=== PATIENT | female | born 1930 | race African-American/Black ===

== ENCOUNTER 2017-08-28 02:45 | Inpatient (IN) | payer MEDICARE, MEDICAID ==
[~2017-08-28] VITALS: Ht 170.2 cm; Wt 34.9 kg
[2017-08-28 02:45] VITALS: BP 99/56
[2017-08-28] MEDS ORDERED: LACTULOSE20 GM/301 GT (03:13)
[2017-08-28] MEDS ORDERED: BACTROBAN CR1 APPLIC TOPIC (03:13)
[2017-08-28] MEDS ORDERED: MULTIVITAMINS1 EAC8 GT (03:13)
[2017-08-28] MEDS ORDERED: MIRTAZAPINE7.5 MG GT (03:13)
[2017-08-28] MEDS ORDERED: FAMOTIDINE20 MG GT (03:13)
[2017-08-28] MEDS ORDERED: TRAMADOL HCL50 MG GT (03:13)
[2017-08-28] MEDS ORDERED: COMBIVENT RESPIM4 GM IH (03:13)
[2017-08-28] MEDS ORDERED: VIBRAMYCIN100 MG ORAL (03:13)
[2017-08-28] MEDS ORDERED: FERROUS SULFAT325 MG GT (03:13)
[2017-08-28] MEDS ORDERED: HEPARIN SO5000 UNIT2 SUBQ (03:13)
[2017-08-28] MEDS ORDERED: NAMENDA5 MG GT (03:13)
[2017-08-28] MEDS ORDERED: ACETAMINOPHEN325 M1 GT (03:13)
--- NOTE | 2017-08-28 03:13 | Emergency Room Report ---
History of Present Illness General Chief Complaint: Gastrointestinal Bleed Source: Medical Record, EMS Present Illness HPI This is an 86-year-old female with history of dementia and feeding tube. She resided in a long-term. She presents with chief complaint of rectal bleeding. Onset tonight. Couple of episodes bright red blood. Also was hypotensive initially per EMS. No nausea vomiting. No fever or chills. History is limited because of patient's dementia. Allergies: Coded Allergies: PENICILLINS (Verified Allergy, Unknown, 08/28/17) Patient History Past Medical History: see triage record, old chart reviewed Past Surgical History: other Pertinent Family History: none Social History: Denies: smoking Now: No Immunizations: other Reviewed Nursing Documentation: PMH: Agreed; PSxH: Agreed Nursing Documentation-PMH Past Medical History: No History, Except For Hx Hypertension: Yes - Severe Sepsis Hx Gastrointestinal Problems: Yes - GERD, Dyshpagia, UTI History Of Psychiatric Problem: Yes - Major Depressive Disorder, Dementia Review of Systems Eye: Denies: eye pain, blurred vision ENT: Denies: ear pain, nose congestion, throat swelling Respiratory: Denies: cough, shortness of breath Cardiovascular: Denies: chest pain, palpitations Gastrointestinal: Denies: abdominal pain, diarrhea, nausea, vomiting Musculoskeletal: Denies: back pain, joint pain Skin: Denies: rash Neurological: Denies: headache, numbness Endocrine: Denies: increased thirst, increased urine Hematologic/Lymphatic: Denies: easy bruising All Other Systems: negative except mentioned in HPI Physical Exam Vital Signs Date Time Temp Pulse Resp B/P (MAP) Pulse Ox O2 Delivery O2 Flow Rate FiO2 08/28/17 02:40 97.6 103 18 99/56 97 Room Air 97.5 vitals with borderline high blood and tachycardia Sp02 EP Interpretation: reviewed, normal General Appearance: alert, cachetic, Chronically Ill Head: normocephalic, atraumatic Eyes: bilateral eye PERRL, bilateral eye EOMI ENT: hearing grossly normal, dry mucus membranes Neck: full range of motion, supple, no meningismus Respiratory: chest non-tender, lungs clear, normal breath sounds Cardiovascular #1: regular rate, rhythm, no murmur Gastrointestinal: normal bowel sounds, non tender, no mass, no organomegaly, no bruit, non-distended Rectal: other - large bright red stool with clots Musculoskeletal: back normal, normal range of motion Neurologic: grossly normal Psychiatric: mood/affect normal Skin: warm/dry Procedures Critical Care Time Critical Care Time Critical care is mandated in this patient who presented with sepsis secondary to UTI. Patient require my urgent intervention to attenuate the risks of metabolic collapse which may lead to cardiovascular collapse and . Critical care time is 35 minutes excluding any reportable procedure. Critical care time included evaluation, multiple reevaluation, looking at old charts, interpreting laboratory and diagnostic data, discussing case with patient and family and consultants, and charting. Medical Decision Making Diagnostic Impression: Primary Impression: Sepsis Qualified Codes: A41.9 - Sepsis, unspecified organism Additional Impressions: UTI (urinary tract infection) Qualified Codes: N30.00 - Acute cystitis without hematuria GI bleed Qualified Codes: K62.5 - Hemorrhage of anus and rectum Anemia Qualified Codes: D64.9 - Anemia, unspecified ARF (acute renal failure) Qualified Codes: N17.9 - Acute kidney failure, unspecified Proteinuria Qualified Codes: R80.9 - Proteinuria, unspecified ER Course Patient present with rectal bleeding. She also has sepsis secondary to UTI. Urine was very purulent. Antibiotics started. Will admit for further workup. Blood pressure improved with IV fluid. Sepsis reevaluation Time: 5 AM Vitals: Heart rate 93, blood pressure 111/48, respiration 16, oxygenation 98%, temperature 97 degree Mental status: More awake and responsive Cardiovascular: Regular rate and rhythm Lungs: Clear Abdomen: Soft Extremity: No edema Skin: No mottling Lab Results Impression labs with leukocytosis and acute renal failure EKG Diagnostic Results Rate: tachycardiac Rhythm: NSR ST Segments: no acute changes Rhythm Strip Diag. Results Rhythm Strip Time: 03:13 EP Interpretation: yes Rate: 98 Rhythm: NSR, no PVC's, no ectopy Chest X-Ray Diagnostic Results Chest X-Ray Diagnostic Results : Chest X-Ray Ordered: Yes # of Views/Limited/Complete: 1 View Indication: Chest Pain EP Interpretation: Yes Interpretation: no consolidation, no effusion, no pneumothorax, no acute cardiopulmonary disease Impression: No acute disease Electronically Signed by: Bruce Crocker MD Last Vital Signs Date Time Temp Pulse Resp B/P (MAP) Pulse Ox O2 Delivery O2 Flow Rate FiO2 08/28/18 02:40 97.6 103 18 99/56 97 Room Air 97.5 Status: improved Disposition: ADMITTED INPATIENT Condition: Serious Referrals: CARL GARCIA (PCP) BRUCE CROCKER M.D. Aug 28, 2017 03:13
[2017-08-28] MEDS ORDERED: Haloperidol 5mg/ml Inj IM ONE (03:15)
[2017-08-28 03:21] LABS: HEMATOCRIT 30.2 % (37.0-47.0); MEAN CORPUSCULAR VOLUME 90 FL (80-99); PLATELET COUNT 642 K/UL (150-450); RED BLOOD COUNT 3.34 M/UL (4.20-5.40); RED CELL DISTRIBUTION WIDTH 15.4 % (11.6-14.8)
[2017-08-28 03:24] LABS: INR 1.1 (0.9-1.1); WHITE BLOOD COUNT 28.4 K/UL (4.8-10.8)
[2017-08-28] MEDS ORDERED: HUMULIN R100 UNIT/1 SUBQ (03:27)
[2017-08-28 03:36] LABS: APPEARANCE,URINE VERY CLOUDY; BILIRUBIN, URINE NEGATIVE (NEGATIVE); GLUCOSE, URINE (UA) NEGATIVE (NEGATIVE); KETONES,URINE NEGATIVE (NEGATIVE); LEUKOCYTE ESTERASE ,URINE 3+ (NEGATIVE); NITRITE,URINE NEGATIVE (NEGATIVE); PH,URINE 6 (4.5-8.0); PROTEIN,URINE 3+ (NEGATIVE); UROBILINOGEN,URINE NORMAL MG/DL (0.0-1.0)
[2017-08-28 03:38] LABS: COLOR,URINE YELLOW
[2017-08-28 03:39] LABS: ANION GAP 11 mmol/L (5-15); BLOOD UREA NITROGEN 241 mg/dL (7-18); CARBON DIOXIDE 29 MMOL/L (21-32); CHLORIDE 94 MMOL/L (98-107); CREATININE 4.5 MG/DL (0.55-1.30); POTASSIUM 4.9 MMOL/L (3.5-5.1); SODIUM 133 MMOL/L (136-145)
[2017-08-28 03:40] LABS: ALANINE AMINOTRANSFERASE 26 U/L (12-78); ALBUMIN 1.6 G/DL (3.4-5.0); ALBUMIN/GLOBULIN RATIO 0.2 (1.0-2.7); ALKALINE PHOSPHATASE 180 U/L (46-116); ASPARTATE AMINO TRANSFERASE 16 U/L (15-37); BILIRUBIN,TOTAL 0.3 MG/DL (0.2-1.0)
[2017-08-28] MEDS ORDERED: Cefepime HCl 1 GM in D5W 55 ML IVPB ONE (04:30)
[2017-08-28] MEDS ORDERED: Vancomycin 750mg/NS 250ml 250 ML IVPB ONE (04:30)
[2017-08-28] MEDS ORDERED: Cefepime 1gm vial ONE (04:33)
[2017-08-28 04:45] VITALS: BP 125/44
[2017-08-28 08:00] VITALS: BP 108/76
[2017-08-28] MEDS ORDERED: D5 1/2NS 1,000 ML IV SCH ×2 (08:30→13:00)
[2017-08-28] MEDS ORDERED: Heparin 5000 units/ml inj SUBQ SCH (09:00)
--- NOTE | 2017-08-28 09:03 | Diagnostic Imaging Report ---
Indication: Shortness of breath Technique: XRAY Chest 1v Comparison: None Findings: Examination is markedly limited due to patient contraction and positioning. Cardiac silhouette appears prominent. Perihilar interstitial opacities are noted. There is left mid and bibasilar atelectasis or scarring. There is no gross pleural effusion. Degenerative changes of the spine are seen. There is osteopenia. Impression: Examination significantly limited by patient contraction and positioning. Perihilar interstitial prominence and mild edema or interstitial infiltrates not excluded. Clinical correlation/follow-up recommended. Left mid and bibasilar atelectasis/scarring.
[2017-08-28] MEDS: Memantine 5 MG TAB GT SCH ×2 (10:04→18:16)
[2017-08-28] MEDS: Lactulose 20gm/30ml UDC GT SCH ×2 (10:04→18:15)
[2017-08-28] MEDS: Multivitamin w/Minerals tab ORAL SCH (10:04)
[2017-08-28 10:48] LABS: HEMATOCRIT 27.8 % (37.0-47.0); HEMOGLOBIN 9.1 G/DL (12.0-16.0); MEAN CORPUSCULAR VOLUME 92 FL (80-99); PLATELET COUNT 618 K/UL (150-450); RED BLOOD COUNT 3.01 M/UL (4.20-5.40)
[2017-08-28 10:50] LABS: WHITE BLOOD COUNT 24.1 K/UL (4.8-10.8)
[2017-08-28 11:13] LABS: ALANINE AMINOTRANSFERASE 23 U/L (12-78); ALBUMIN 1.5 G/DL (3.4-5.0); ALBUMIN/GLOBULIN RATIO 0.2 (1.0-2.7); ALKALINE PHOSPHATASE 164 U/L (46-116); ANION GAP 10 mmol/L (5-15); ASPARTATE AMINO TRANSFERASE 19 U/L (15-37); BILIRUBIN,TOTAL 0.3 MG/DL (0.2-1.0); BLOOD UREA NITROGEN 210 mg/dL (7-18); CALCIUM 9.2 MG/DL (8.5-10.1); CARBON DIOXIDE 28 MMOL/L (21-32); CHLORIDE 103 MMOL/L (98-107); CREATININE 3.7 MG/DL (0.55-1.30); PHOSPHORUS 2.6 MG/DL (2.5-4.9); POTASSIUM 4.5 MMOL/L (3.5-5.1); SODIUM 140 MMOL/L (136-145)
[2017-08-28] MEDS: NovoLOG Insulin Flexpen SUBQ SCH ×3 (11:30→21:00)
[2017-08-28 12:00] VITALS: BP 115/47
--- NOTE | 2017-08-28 12:31 | History & Physical ---
History and Physical History & Physicial Dictated for Int Med-Dr Villegas no. [id number]. JOELLE FROST Aug 28, 2017 12:31
--- NOTE | 2017-08-28 12:45 | General Progress Note ---
Progress Note Progress Note [id number] full consult dictated thank you SIMONE JACOBO Aug 28, 2017 12:45
--- NOTE | 2017-08-28 13:15 | History and Physical Report ---
DATE OF ADMISSION: 08/28/2017 CHIEF COMPLAINT: The patient is an 86-year-old female who presents with chief complaint of rectal bleeding. HISTORY OF PRESENT ILLNESS: The patient is resident of [facility]. The patient herself is unable to contribute much to the history and physical secondary to Alzheimer dementia. According to staff at [facility], the patient began to experience rectal bleeding yesterday, August 27, 2017. The patient presented to [place] [facility]. The patient was admitted for acute rectal bleeding to rule out colon cancer versus diverticulosis. Of note, the patient was found to have urinary tract infection as well. The patient also was found to have leukocytosis. The patient was also admitted for probable sepsis. REVIEW OF SYSTEMS: Unable to assess secondary to the patient's mental status. PAST MEDICAL HISTORY: Significant for: 1. Chronic anemia. 2. Chronic renal failure. 3. Hypertension. 4. Major depression. 5. Alzheimer dementia. 6. Gastroesophageal reflux disease. 7. History of dysphagia, status post PEG placement. PAST SURGICAL HISTORY: Significant for PEG placement. CURRENT MEDICATIONS: 1. Tylenol 650 mg per G-tube q.4 hours p.r.n. 2. Pepcid 20 mg per G-tube daily. 3. Iron sulfate 325 mg per G-tube twice daily. 4. Heparin 5000 units subcutaneously twice daily. 5. Regular insulin sliding scale. 6. DuoNeb nebulized q.4 h. p.r.n. 7. Lactulose 30 mL per G-tube twice daily. 8. Namenda 5 mg per G-tube twice daily for dementia. 9. Mirtazapine 7.5 mg per G-tube nightly. 10. Tramadol 50 mg per G-tube q.4 hours p.r.n. ALLERGIES: To penicillin. SOCIAL HISTORY: The patient denies tobacco or alcohol use. The patient is resident of [facility]. PHYSICAL EXAMINATION: VITAL SIGNS: Temperature 97.5, respirations 18, pulse 96, blood pressure 99 to 125 over 44 to 56. GENERAL: The patient is thin-appearing, frail, elderly female, who is moaning. HEENT: Eyes, pupils equal and responsive to light and accommodation. Extraocular movements are intact. NECK: Supple without lymphadenopathy. CHEST: Lungs are clear to auscultation bilaterally without wheezes or rales. CARDIOVASCULAR: Regular rhythm and rate. S1, S2 normal without murmurs, rubs, or gallops. ABDOMEN: Soft, nontender, nondistended. Positive bowel sounds. No evidence of hepatosplenomegaly. Currently, no rebound or guarding noted. There is a percutaneous G-tube present. NEUROLOGICAL: Cranial nerves II through XII are grossly intact without focal deficits. LABORATORY STUDIES: WBC elevated at 28.4, hemoglobin 10.0, hematocrit 30.2, platelets 642,000. Sodium 133, potassium 4.9, chloride 94, CO2 29, BUN 241, creatinine 4.5, glucose 146. Troponin 0.0. Urinalysis showed 3+ protein, 5+ occult blood, 3+ leukocyte esterase, nitrite negative, leukocyte esterase 3+, wbc's too numerous to count. A chest x-ray revealed perihilar interstitial prominence consistent with infiltrate. ASSESSMENT: This is an 86-year-old female with: 1. Rectal bleeding. 2. Urinary tract infection. 3. Probable pneumonia. 4. Sepsis. 5. Anemia. 6. Acute on chronic renal failure. 7. Leukocytosis. 8. Hypertension. 9. Major depression. 10. Alzheimer dementia. 11. Gastroesophageal reflux disease. 12. Dysphagia. TREATMENT: 1. Rectal bleeding. Gastroenterology consultation has been obtained with Dr. Dontae Buenrostro. We will follow recommendations of Dr. Buenrostro. The patient has been placed empirically on Protonix. 2. Urinary tract infection. Urine culture is pending. The patient has been placed empirically on cefepime and vancomycin. 3. Probable pneumonia. Pulmonary consultation has been obtained with Dr. Scottie Jarquin. As above, the patient has been placed empirically on cefepime and vancomycin. 4. Sepsis. Await urine cultures as above. An Infectious Disease consultation has been obtained with Dr. Irwin. 5. Anemia of chronic disease. 6. Acute on chronic renal failure. Nephrology consultation has been obtained with Dr. Mcintyre. The patient is currently on intravenous fluids. 7. Leukocytosis. This is secondary to sepsis as above. 8. Hypertension. The patient is currently hypotensive. Hold antihypertensive medication at this time. 9. Major depression. Continue mirtazapine as above. 10. Alzheimer dementia. Continue Namenda as above. 11. Gastroesophageal reflux disease. Continue Protonix as above. 12. Dysphagia. The patient is status post PEG. Urban Lim M.D. DR: Seth JOB#: [id number] CC:
[2017-08-28] MEDS: D5 1/2NS 1,000 ML IV SCH ×2 (13:42→21:30)
--- NOTE | 2017-08-28 13:46 | General Progress Note ---
Assessment/Plan Assessment/Plan GI CONSULT Dictated Will arrange for EGD/Colon tomorrow Thank you Kadi Mckeon MD Subjective Allergies: Coded Allergies: PENICILLINS (Verified Allergy, Unknown, 08/28/17) Objective Last 24 Hour Vital Signs Date Time Temp Pulse Resp B/P (MAP) Pulse Ox O2 Delivery O2 Flow Rate FiO2 08/28/17 12:00 96.9 98 18 115/47 92 Room Air 96.9 08/28/17 10:49 96.9 08/28/17 08:00 91 08/28/17 08:00 96.9 94 19 108/76 94 Room Air 96.9 08/28/17 05:30 97.8 97 15 125/44 97 Room Air 97.8 08/28/17 04:45 97.8 97 15 125/44 97 Room Air 97.8 08/28/17 02:45 97.5 96 18 99/56 97 Room Air 97.5 08/28/17 02:40 97.6 103 18 99/56 97 Room Air 97.5 Intake and Output 08/27/17 08/28/17 19:00 07:00 Intake Total 1950 ml Output Total 500 ml Balance 1450 ml Intake IV Total 1950 ml Output Urine Total 500 ml Laboratory Tests 08/28/17 03:00: White Blood Count 28.4*H, Red Blood Count 3.34L, Hemoglobin 10.0L, Hematocrit 30.2L, Mean Corpuscular Volume 90, Mean Corpuscular Hemoglobin 29.8, Mean Corpuscular Hemoglobin Concent 33.0, Red Cell Distribution Width 15.4H, Platelet Count 642H, Mean Platelet Volume 5.7L, Neutrophils (%) (Auto) , Lymphocytes (%) (Auto) , Monocytes (%) (Auto) , Eosinophils (%) (Auto) , Basophils (%) (Auto) , Differential Total Cells Counted 100, Neutrophils % ( Manual) 88H, Lymphocytes % (Manual) 8L, Monocytes % (Manual) 4, Eosinophils % ( Manual) 0, Basophils % (Manual) 0, Band Neutrophils 0, Platelet Estimate IncreasedH, Platelet Morphology Normal, Hypochromasia 1+, Anisocytosis 1+, Prothrombin Time 11.0, Prothromb Time International Ratio 1.1, Activated Partial Thromboplast Time 30, Sodium Level 133L, Potassium Level 4.9, Chloride Level 94L, Carbon Dioxide Level 29, Anion Gap 11, Blood Urea Nitrogen 241H, Creatinine 4.5H, Estimat Glomerular Filtration Rate , Glucose Level 146H, Calcium Level 10.0, Total Bilirubin 0.3, Aspartate Amino Transf (AST/SGOT) 16, Alanine Aminotransferase (ALT/SGPT) 26, Alkaline Phosphatase 180H, Troponin I 0.000, Total Protein 8.4H, Albumin 1.6L, Globulin 6.8, Albumin/Globulin Ratio 0.2L 08/28/17 03:15: Urine Color Yellow, Urine Appearance Very cloudy, Urine pH 6, Urine Specific [place] 1.010, Urine Protein 3+H, Urine Glucose (UA) Negative, Urine Ketones Negative, Urine Occult Blood 5+H, Urine Nitrite Negative, Urine Bilirubin Negative, Urine Urobilinogen Normal, Urine Leukocyte Esterase 3+H, Urine RBC 15- 20H, Urine WBC TntcH, Urine Squamous Epithelial Cells ModerateH, Urine Bacteria ManyH, Lactic Acid Level 1.40 08/28/17 10:00: White Blood Count 24.1*H, Red Blood Count 3.01L, Hemoglobin 9.1L, Hematocrit 27.8L, Mean Corpuscular Volume 92, Mean Corpuscular Hemoglobin 30.2, Mean Corpuscular Hemoglobin Concent 32.7, Red Cell Distribution Width 16.0H, Platelet Count 618H, Mean Platelet Volume 5.7L, Neutrophils (%) (Auto) , Lymphocytes (%) (Auto) , Monocytes (%) (Auto) , Eosinophils (%) (Auto) , Basophils (%) (Auto) , Differential Total Cells Counted 100, Neutrophils % ( Manual) 90H, Lymphocytes % (Manual) 4L, Monocytes % (Manual) 5, Eosinophils % ( Manual) 0, Basophils % (Manual) 0, Band Neutrophils 1, Platelet Estimate IncreasedH, Platelet Morphology Normal, Hypochromasia 1+, Anisocytosis 1+, Sodium Level 140, Potassium Level 4.5, Chloride Level 103, Carbon Dioxide Level 28, Anion Gap 10, Blood Urea Nitrogen 210H, Creatinine 3.7H, Estimat Glomerular Filtration Rate , Glucose Level 108H, Calcium Level 9.2, Total Bilirubin 0.3, Aspartate Amino Transf (AST/SGOT) 19, Alanine Aminotransferase (ALT/SGPT) 23, Alkaline Phosphatase 164H, Total Protein 7.8, Albumin 1.5L, Globulin 6.3, Albumin/Globulin Ratio 0.2L, Phosphorus Level 2.6, Magnesium Level 2.7H Height (Feet): 5 Height (Inches): 7.00 Weight (Pounds): 77 KADI MCKEON Aug 28, 2017 13:46
--- NOTE | 2017-08-28 14:15 | Consultation ---
DATE OF CONSULTATION: 08/28/2017 NEPHROLOGY CONSULTATION CONSULTING PHYSICIAN: Lisbeth Mcintyre M.D. REFERRING PHYSICIAN: Urban Lim M.D. REASON FOR CONSULTATION: Acute renal failure. HISTORY OF PRESENT ILLNESS: The patient is an unfortunate 86-year-old female with past medical history significant for history of GERD, history of G-tube placement, hypertension, dyslipidemia, and history of malnutrition, who was transferred from long term to [facility] due to couple of episodes of bright red blood per rectum. The patient baseline is nonverbal, but she currently moaning and she is not able to provide meaningful history for me, so most of my history are obtained through reviewing the chart and information from the long term. PAST MEDICAL HISTORY: 1. History of GERD. 2. History of hypertension. 3. History of dyslipidemia. 4. History of dementia. PAST SURGICAL HISTORY: History of PEG placement. MEDICATION: Medication reconciliation was reviewed. ALLERGIES: She is allergic to penicillin. REVIEW OF SYSTEMS: Unable to obtain due to the patient's condition and mental status, but based on the information obtained from the long term and from the nurse currently, the patient had multiple episodes of bright red blood per rectum. She has also some tenderness where the G-tube feeding has been hold. There was no nausea or vomiting was reported. There was no fever or chills. There is no shortness of breath. The patient currently has a Asencio catheter, which is draining very dark white sediment urine in the Asencio bag. Otherwise, negative. PHYSICAL EXAMINATION: VITAL SIGNS: The patient had temperature of 97, pulse of 103, respiratory rate of 18, and blood pressure of 99/53. GENERAL: The patient is a chronically ill, malnourished female, in no acute distress. HEAD AND NECK: Bitemporal wasting. Extraocular movement intact. Pupils are reactive to light and accommodation. Sclera is pink. Dry mucous membranes. LUNGS: Clear to auscultation. CARDIAC: Regular rate and rhythm. S1 and S2. No murmur. No rub. ABDOMEN: Soft, nontender. G-tube is in place. EXTREMITIES: No edema, no clubbing, no cyanosis. LABORATORY AND DIAGNOSTIC DATA: Laboratory value, the patient on admission found to have sodium 133, potassium 4.9, chloride 94, bicarbonate 29, BUN of 241, creatinine of 4.5, glucose of 146, and calcium of 10. AST of 16, ALT of 26, and alkaline phosphatase of 180. Total protein of 8.4. Albumin of 1.6. UA revealed specific gravity of 1.010, protein 3+, pH of 6, blood 5+, leukocyte esterase 2+, rbc 15 to 20, wbc too many to count, bacteria many. INR 1.1. CBC revealed WBC count of , hemoglobin of 10, hematocrit of 30, and platelet count of 642. ASSESSMENT: 1. Acute renal failure. The etiology of acute renal failure ATN with unstable hemodynamics. ATN at this point is nonoliguric. The patient has good urine output. The other possibility of elevation of the BUN as a result of GI bleeding, which causing elevation in BUN. 2. Malnutrition with albumin of 1.5, which needs to have a better evaluation with checking the prealbumin level. 3. Urinary tract infection. 4. GI bleeding. 5. Hypotension. 6. Dementia. PLAN: Plan for the patient to obtain UA. Check the random urine protein creatinine ratio to calculate the proteinuria. Check the urine sodium and creatinine to calculate fractional excretion of sodium. Ultrasound of the kidney to evaluate the kidney size. Check the I's and O's. Monitor renal function and electrolytes closely. Again, I would like to thank, Dr. Lim, for allowing me to participate in the care of this patient. Lisbeth Mcintyre M.D. DR: KRYSTLE JOB#: [id number] CC:
[2017-08-28] MEDS ORDERED: Nulytely 4L ORAL ONE (14:30)
[2017-08-28 16:00] VITALS: BP 117/63
[2017-08-28 20:00] VITALS: BP 144/67
[2017-08-28] MEDS: metroNIDAZOLE 500mg tab ORAL SCH (21:59)
[2017-08-28] MEDS: traMADol 50mg tab GT PRN (22:02)
--- NOTE | 2017-08-28 23:39 | Consultation ---
History of Present Illness General Date patient seen: Aug 27, 2017 Chief Complaint: Gastrointestinal Bleed Present Illness Allergies: Coded Allergies: PENICILLINS (Verified Allergy, Unknown, 08/28/17) Medication History Scheduled Doxycycline Hyclate* (Vibramycin*), 100 MG ORAL EVERY 12 HOURS, (Reported) Famotidine (Famotidine), 20 MG GT DAILY, (Reported) Ferrous Sulfate* (Ferrous Sulfate*), 325 MG GT BID, (Reported) Heparin Sod (Porcine) (Heparin Sodium*), 5,000 UNITS SUBQ EVERY 12 HOURS, ( Reported) Ipratropium/Albuterol Sulfate (Combivent Respimat Inhal [place]), 3 GM IH QID, ( Reported) Lactulose (Lactulose*), 30 ML GT BID, (Reported) Memantine Hcl* (Namenda*), 5 MG GT TWICE A DAY, (Reported) Mirtazapine* (Mirtazapine*), 7.5 MG GT BEDTIME, (Reported) Multivitamin With Minerals (Multivitamins With Minerals*), 1 TAB GT DAILY, ( Reported) Mupirocin Calcium (Bactroban), 1 APPLIC TOPIC DAILY, (Reported) Scheduled PRN Acetaminophen* (Acetaminophen 325MG Tablet*), 650 MG GT Q4H PRN for For Pain, ( Reported) Insulin Regular, Human (Humulin R), 0 SUBQ ACHS PRN for Sliding Scale, (Reported ) Tramadol Hcl* (Ultram*), 50 MG GT Q4HR PRN for For Pain, (Reported) Patient History Healthcare decision maker Resuscitation status Full Code Advanced Directive on File Physical Exam Last 24 Hour Vital Signs Date Time Temp Pulse Resp B/P (MAP) Pulse Ox O2 Delivery O2 Flow Rate FiO2 08/28/17 20:00 91 08/28/17 20:00 97.7 89 22 144/67 Room Air 97.7 08/28/17 16:00 97.0 87 19 117/63 Room Air 97.0 08/28/17 16:00 85 08/28/17 12:00 98 08/28/17 12:00 96.9 98 18 115/47 92 Room Air 96.9 08/28/17 10:49 96.9 08/28/17 08:00 91 08/28/17 08:00 96.9 94 19 108/76 94 Room Air 96.9 08/28/17 05:30 97.8 97 15 125/44 97 Room Air 97.8 08/28/17 04:45 97.8 97 15 125/44 97 Room Air 97.8 08/28/17 02:45 97.5 96 18 99/56 97 Room Air 97.5 08/28/17 02:40 97.6 103 18 99/56 97 Room Air 97.5 Intake and Output 08/27/17 08/28/17 19:00 07:00 Intake Total 1950 ml Output Total 500 ml Balance 1450 ml Intake IV Total 1950 ml Output Urine Total 500 ml Laboratory Tests Test 08/28/17 03:00 08/28/17 03:15 08/28/17 10:00 08/28/17 16:15 White Blood Count 28.4 K/UL (4.8-10.8) *H 24.1 K/UL (4.8-10.8) *H Red Blood Count 3.34 M/UL (4.20-5.40) L 3.01 M/UL (4.20-5.40) L Hemoglobin 10.0 G/DL (12.0-16.0) L 9.1 G/DL (12.0-16.0) L Hematocrit 30.2 % (37.0-47.0) L 27.8 % (37.0-47.0) L Mean Corpuscular Volume 90 FL (80-99) 92 FL (80-99) Mean Corpuscular Hemoglobin 29.8 PG (27.0-31.0) 30.2 PG (27.0-31.0) Mean Corpuscular Hemoglobin Concent 33.0 G/DL (32.0-36.0) 32.7 G/DL (32.0-36.0) Red Cell Distribution Width 15.4 % (11.6-14.8) H 16.0 % (11.6-14.8) H Platelet Count 642 K/UL (150-450) H 618 K/UL (150-450) H Mean Platelet Volume 5.7 FL (6.5-10.1) L 5.7 FL (6.5-10.1) L Neutrophils (%) (Auto) % (45.0-75.0) % (45.0-75.0) Lymphocytes (%) (Auto) % (20.0-45.0) % (20.0-45.0) Monocytes (%) (Auto) % (1.0-10.0) % (1.0-10.0) Eosinophils (%) (Auto) % (0.0-3.0) % (0.0-3.0) Basophils (%) (Auto) % (0.0-2.0) % (0.0-2.0) Differential Total Cells Counted 100 100 Neutrophils % (Manual) 88 % (45-75) H 90 % (45-75) H Lymphocytes % (Manual) 8 % (20-45) L 4 % (20-45) L Monocytes % (Manual) 4 % (1-10) 5 % (1-10) Eosinophils % (Manual) 0 % (0-3) 0 % (0-3) Basophils % (Manual) 0 % (0-2) 0 % (0-2) Band Neutrophils 0 % (0-8) 1 % (0-8) Platelet Estimate Increased H Increased H Platelet Morphology Normal Normal Hypochromasia 1+ 1+ Anisocytosis 1+ 1+ Prothrombin Time 11.0 SEC (9.30-11.50) Prothromb Time International Ratio 1.1 (0.9-1.1) Activated Partial Thromboplast Time 30 SEC (23-33) Sodium Level 133 MMOL/L (136-145) L 140 MMOL/L (136-145) Potassium Level 4.9 MMOL/L (3.5-5.1) 4.5 MMOL/L (3.5-5.1) Chloride Level 94 MMOL/L (98-107) L 103 MMOL/L (98-107) Carbon Dioxide Level 29 MMOL/L (21-32) 28 MMOL/L (21-32) Anion Gap 11 mmol/L (5-15) 10 mmol/L (5-15) Blood Urea Nitrogen 241 mg/dL (7-18) H 210 mg/dL (7-18) H Creatinine 4.5 MG/DL (0.55-1.30) H 3.7 MG/DL (0.55-1.30) H Estimat Glomerular Filtration Rate mL/min (>60) mL/min (>60) Glucose Level 146 MG/DL (74-106) H 108 MG/DL (74-106) H Calcium Level 10.0 MG/DL (8.5-10.1) 9.2 MG/DL (8.5-10.1) Total Bilirubin 0.3 MG/DL (0.2-1.0) 0.3 MG/DL (0.2-1.0) Aspartate Amino Transf (AST/SGOT) 16 U/L (15-37) 19 U/L (15-37) Alanine Aminotransferase (ALT/SGPT) 26 U/L (12-78) 23 U/L (12-78) Alkaline Phosphatase 180 U/L (46-116) H 164 U/L (46-116) H Troponin I 0.000 ng/mL (0.000-0.056) Total Protein 8.4 G/DL (6.4-8.2) H 7.8 G/DL (6.4-8.2) Albumin 1.6 G/DL (3.4-5.0) L 1.5 G/DL (3.4-5.0) L Globulin 6.8 g/dL 6.3 g/dL Albumin/Globulin Ratio 0.2 (1.0-2.7) L 0.2 (1.0-2.7) L Urine Color Yellow Urine Appearance Very cloudy Urine pH 6 (4.5-8.0) Urine Specific [place] 1.010 (1.005-1.035) Urine Protein 3+ (NEGATIVE) H Urine Glucose (UA) Negative (NEGATIVE) Urine Ketones Negative (NEGATIVE) Urine Occult Blood 5+ (NEGATIVE) H Urine Nitrite Negative (NEGATIVE) Urine Bilirubin Negative (NEGATIVE) Urine Urobilinogen Normal MG/DL (0.0-1.0) Urine Leukocyte Esterase 3+ (NEGATIVE) H Urine RBC 15-20 /HPF (0 - 2) H Urine WBC Tntc /HPF (0 - 2) H Urine Squamous Epithelial Cells Moderate /LPF (NONE/OCC) H Urine Bacteria Many /HPF (NONE) H Lactic Acid Level 1.40 mmol/L (0.66-2.22) Phosphorus Level 2.6 MG/DL (2.5-4.9) Magnesium Level 2.7 MG/DL (1.8-2.4) H Urine Eosinophils Rare Urine Random Creatinine Pending Urine Random Microalbumin Pending Urine Random Total Protein 77 MG/DL (< 11.9) H Urine Random Sodium 36 mmol/L (20-110) Urine Creatinine 25.7 MG/DL (30.0-125.0) L Urine Microalbumin/Creatinine Ratio Pending Height (Feet): 5 Height (Inches): 7.00 Weight (Pounds): 77 Medications Current Medications Medications (Trade) Dose Ordered Sig/Zeke Route PRN Reason Start Time Stop Time Status Last Admin Dose Admin Acetaminophen (Tylenol) 650 mg Q4H PRN ORAL Mild Pain (Pain Scale 1-3) 08/28/17 08:00 09/27/17 07:59 08/28/17 10:49 Cefepime HCl 500 mg/Dextrose 55 ml @ 110 mls/hr Q24H IVPB 08/29/17 09:00 09/05/17 08:59 Dextrose (Dextrose 50%) STAT PRN IV Hypoglycemia 08/28/17 08:30 09/27/17 08:29 Dextrose/Sodium Chloride 1,000 ml @ 125 mls/hr Q8H IV 08/28/17 13:30 09/27/17 13:29 08/28/17 13:42 Famotidine (Pepcid) 20 mg DAILY GT 08/28/17 09:00 09/27/17 08:59 08/28/17 10:04 Insulin Aspart (NovoLOG) BEFORE MEALS AND HS SUBQ 08/28/17 11:30 09/27/17 11:29 Lactulose (Cephulac) 20 gm BID GT 08/28/17 09:00 09/27/17 08:59 08/28/17 18:15 Memantine (Namenda) 5 mg TWICE A DAY GT 08/28/17 09:00 09/27/17 08:59 08/28/17 18:16 Metronidazole (Flagyl) 500 mg Q8HR ORAL 08/28/17 22:00 09/04/17 21:59 08/28/17 21:59 Mirtazapine (Remeron) 7.5 mg BEDTIME GT 08/28/17 21:00 09/27/17 20:59 08/28/17 21:58 Multivitamins Therapeutic (Therapeutic Multivitamin) 1 ea DAILY ORAL 08/28/17 09:00 09/27/17 08:59 08/28/17 10:04 Tramadol HCl (Ultram) 50 mg Q4H PRN GT Moderate Pain (Pain Scale 4-6) 08/28/17 08:00 09/04/17 07:59 08/28/17 22:02 Vancomycin HCl (Vanco rx to dose) 1 ea DAILY PRN MISC Per rx protocol 08/28/17 08:00 09/27/17 07:59 Poppy Mercado M.D. Aug 28, 2017 23:39
[2017-08-29] VITALS (9 sets, daily range): BP systolic 116–134; BP diastolic 56–76
--- NOTE | 2017-08-29 00:45 | Consultation ---
DATE OF CONSULTATION: 08/28/2017 GASTROENTEROLOGY CONSULTATION CONSULTING PHYSICIAN: Kadi Mckeon M.D. CHIEF COMPLAINT: I was asked this patient by Dr. Urban Lim and Dr. Karl Villegas for evaluation of gastrointestinal bleeding. HISTORY OF PRESENT ILLNESS: The patient is an unfortunate 86-year-old woman with dementia, from a halfway, who was brought in due to acute gastrointestinal bleeding. The patient was noted to have rectal bleeding and therefore, she was brought in. It is unclear of the source. The patient has not had a colonoscopy or endoscopy for least 5 to 10 years according to the daughter. The patient herself was confused and unable to provide any history. Most of the information is only available from the chart. The patient underwent a gastrostomy tube placement about 6 months ago because of poor nutrition. She has renal failure herself, which appeared to be chronic. PAST MEDICAL HISTORY: History of chronic anemia with acute gastrointestinal bleeding, renal failure, hypertension, depression, Alzheimer's dementia, gastroesophageal reflux disease, history of dysphagia status post gastrostomy tube placement. MEDICATIONS: Outpatient medications include Tylenol, Pepcid, iron, heparin, nebulizers, lactulose, Namenda, mirtazapine, and tramadol. ALLERGIES: Penicillin. FAMILY HISTORY: Noncontributory. SOCIAL HISTORY: The patient has had no history of smoking or drinking. She is from a halfway. REVIEW OF SYSTEMS: Unobtainable. PHYSICAL EXAMINATION: GENERAL: Debilitated, thin, woman, seen in her room with the nurse at bedside. HEENT: Normocephalic. There was temporal wasting. NECK: Supple. CHEST: Revealed coarse breath sounds. CARDIOVASCULAR: Revealed a regular rate. ABDOMEN: Soft with gastrostomy tube in good position. EXTREMITIES: Revealed no edema. RECTAL: From external view showed dark red stools. LABORATORY AND DIAGNOSTIC DATA: Laboratory data were noted. ASSESSMENT: This patient presents with acute gastrointestinal bleeding. Given her age and presentation, the differential diagnosis would include diverticular bleeding. Another consideration, especially given the elevated white count would be ischemic bowel or ischemic colitis with bleeding. Her platelet count was also elevated, which usually is seen in inflammatory processes. Her creatinine is 3.7, but it sounds like it is maybe old. Her lactic acid today is normal, but will be followed up tomorrow. Her overall prognosis is poor, but the family requests an investigation re source. Her urine also shows urine tract infection, for which she clearly needs antibiotic treatment. RECOMMENDATIONS: 1. Keep the patient NPO. 2. GI tract preparation and lavage. 3. Broad-spectrum antibiotics. 4. Aggressive hydration and followup. 5. Endoscopy and colonoscopy in the the next day or two once stabilized. Thank you for asking me to participate in the care of this patient. Kadi Mckeon M.D. DR: JENNY JOB#: [id number] CC: [id number]
[2017-08-29] MEDS: D5 1/2NS 1,000 ML IV SCH ×2 (03:47→15:47)
[2017-08-29] MEDS: metroNIDAZOLE 500mg tab ORAL SCH ×3 (05:43→22:45)
[2017-08-29] MEDS: NovoLOG Insulin Flexpen SUBQ SCH ×4 (06:26→21:00)
--- NOTE | 2017-08-29 08:26 | Anethesia Preoperative Eval ---
Anesthesia Pre-op PMH/ROS General Date of Evaluation: Aug 29, 2017 Time of Evaluation: 08:23 Anesthesiologist: amena ASA Score: ASA 4 Mallampati Score Class I : Soft palate, uvula, fauces, pillars visible Class II: Soft palate, uvula, fauces visible Class III: Soft palate, base of uvula visible Class IV: Only hard plate visible Mallampati Classification: Class II Surgeon: jessica Diagnosis: anemia, rectal bleed Surgical Procedure: egd/colonoscopy Anesthesia History: none Social History: smoking - nonsmoker Family History: no anesthesia problems Allergies: Coded Allergies: PENICILLINS (Verified Allergy, Unknown, 08/28/17) Medications: see eMAR Past Medical History Gastrointestinal/Genitourinary: Reports: GERD, ESRD Neurologic/Psychiatric: Reports: dementia, other - muscular dystrophy Endocrine: Reports: DM Hematology/Immune: Reports: anemia Anesthesia Pre-op Phys. Exam Physician Exam Last Vital Signs Date Time Temp Pulse Resp B/P (MAP) Pulse Ox O2 Delivery O2 Flow Rate FiO2 08/29/17 04:00 97.3 102 24 116/57 Room Air 98.4 97.3 08/28/17 12:00 92 Constitutional: NAD Neurologic: CN 2-12 intact Cardiovascular: RRR Respiratory: CTA Gastrointestinal: S/NT/ND Airway Exam Mallampati Score: Class II MO: limited Neck: supple TMD: 2fb ROM: limited Teeth: missing Anesthesia Pre-op A/P Labs Hematology Test 08/28/17 10:00 White Blood Count 24.1 K/UL (4.8-10.8) *H Red Blood Count 3.01 M/UL (4.20-5.40) L Hemoglobin 9.1 G/DL (12.0-16.0) L Hematocrit 27.8 % (37.0-47.0) L Mean Corpuscular Volume 92 FL (80-99) Mean Corpuscular Hemoglobin 30.2 PG (27.0-31.0) Mean Corpuscular Hemoglobin Concent 32.7 G/DL (32.0-36.0) Red Cell Distribution Width 16.0 % (11.6-14.8) H Platelet Count 618 K/UL (150-450) H Mean Platelet Volume 5.7 FL (6.5-10.1) L Neutrophils (%) (Auto) % (45.0-75.0) Lymphocytes (%) (Auto) % (20.0-45.0) Monocytes (%) (Auto) % (1.0-10.0) Eosinophils (%) (Auto) % (0.0-3.0) Basophils (%) (Auto) % (0.0-2.0) Differential Total Cells Counted 100 Neutrophils % (Manual) 90 % (45-75) H Lymphocytes % (Manual) 4 % (20-45) L Monocytes % (Manual) 5 % (1-10) Eosinophils % (Manual) 0 % (0-3) Basophils % (Manual) 0 % (0-2) Band Neutrophils 1 % (0-8) Platelet Estimate Increased H Platelet Morphology Normal Hypochromasia 1+ Anisocytosis 1+ Chemistry Test 08/28/17 10:00 Sodium Level 140 MMOL/L (136-145) Potassium Level 4.5 MMOL/L (3.5-5.1) Chloride Level 103 MMOL/L (98-107) Carbon Dioxide Level 28 MMOL/L (21-32) Anion Gap 10 mmol/L (5-15) Blood Urea Nitrogen 210 mg/dL (7-18) H Creatinine 3.7 MG/DL (0.55-1.30) H Estimat Glomerular Filtration Rate mL/min (>60) Glucose Level 108 MG/DL (74-106) H Calcium Level 9.2 MG/DL (8.5-10.1) Phosphorus Level 2.6 MG/DL (2.5-4.9) Magnesium Level 2.7 MG/DL (1.8-2.4) H Total Bilirubin 0.3 MG/DL (0.2-1.0) Aspartate Amino Transf (AST/SGOT) 19 U/L (15-37) Alanine Aminotransferase (ALT/SGPT) 23 U/L (12-78) Alkaline Phosphatase 164 U/L (46-116) H Total Protein 7.8 G/DL (6.4-8.2) Albumin 1.5 G/DL (3.4-5.0) L Globulin 6.3 g/dL Albumin/Globulin Ratio 0.2 (1.0-2.7) L Risk Assessment & Plan Assessment: asa4 Plan: mac Status Change Before Surgery: No Pre-Antibiotics Drug: ELYSIA Laboy 26, 2018 08:26
[2017-08-29] MEDS ORDERED: Midazolam 2mg/2ml Inj IVP PRN (08:30)
[2017-08-29] MEDS ORDERED: fentaNYL 100 mcg/2 mL IV PRN (08:30)
[2017-08-29] MEDS ORDERED: Atropine Inj 1mg/10ml Syr IV PRN (08:30)
[2017-08-29] MEDS ORDERED: DiphenhydrAMINE 50mg/ml Inj IVP PRN (08:30)
[2017-08-29 09:14] LABS: HEMATOCRIT 36.6 % (37.0-47.0); HEMOGLOBIN 12.2 G/DL (12.0-16.0); MEAN CORPUSCULAR VOLUME 91 FL (80-99); PLATELET COUNT 561 K/UL (150-450); RED BLOOD COUNT 4.03 M/UL (4.20-5.40); RED CELL DISTRIBUTION WIDTH 14.9 % (11.6-14.8)
--- NOTE | 2017-08-29 09:20 | Nephrology Progress Note ---
Assessment/Plan Assessment 1. Acute renal failure. 2. Malnutrition 3. Urinary tract infection. 4. GI bleeding. 5. Hypotension. 6. Dementia. Plan plan continue ivf monitoring renal function avoid NSAID replace electrolyte as need Subjective Constitutional: Reports: no symptoms HEENT: Reports: no symptoms Genitourinary: Reports: no symptoms Neurologic/Psychiatric: Reports: no symptoms Subjective no acute events over night Objective Objective Last 24 Hour Vital Signs Date Time Temp Pulse Resp B/P (MAP) Pulse Ox O2 Delivery O2 Flow Rate FiO2 08/29/17 04:00 97.3 102 24 116/57 Room Air 98.4 97.3 08/29/17 04:00 98 08/29/17 00:00 96 08/29/17 00:00 97.2 99 24 117/72 Room Air 98.0 97.2 08/28/17 20:00 91 08/28/17 20:00 97.7 89 22 144/67 Room Air 97.7 08/28/17 16:00 97.0 87 19 117/63 Room Air 97.0 08/28/17 16:00 85 08/28/17 12:00 98 08/28/17 12:00 96.9 98 18 115/47 92 Room Air 96.9 08/28/17 10:49 96.9 Intake and Output 08/28/17 08/29/17 19:00 07:00 Intake Total 655 ml 895 ml Output Total 1825 ml Balance 655 ml -930 ml Intake IV Total 655 ml 395 ml Blood Product 500 ml Output Urine Total 1825 ml # Bowel Movements 3 4 Laboratory Tests 08/28/17 10:00: White Blood Count 24.1*H, Red Blood Count 3.01L, Hemoglobin 9.1L, Hematocrit 27.8L, Mean Corpuscular Volume 92, Mean Corpuscular Hemoglobin 30.2, Mean Corpuscular Hemoglobin Concent 32.7, Red Cell Distribution Width 16.0H, Platelet Count 618H, Mean Platelet Volume 5.7L, Neutrophils (%) (Auto) , Lymphocytes (%) (Auto) , Monocytes (%) (Auto) , Eosinophils (%) (Auto) , Basophils (%) (Auto) , Differential Total Cells Counted 100, Neutrophils % ( Manual) 90H, Lymphocytes % (Manual) 4L, Monocytes % (Manual) 5, Eosinophils % ( Manual) 0, Basophils % (Manual) 0, Band Neutrophils 1, Platelet Estimate IncreasedH, Platelet Morphology Normal, Hypochromasia 1+, Anisocytosis 1+, Sodium Level 140, Potassium Level 4.5, Chloride Level 103, Carbon Dioxide Level 28, Anion Gap 10, Blood Urea Nitrogen 210H, Creatinine 3.7H, Estimat Glomerular Filtration Rate , Glucose Level 108H, Calcium Level 9.2, Phosphorus Level 2.6, Magnesium Level 2.7H, Total Bilirubin 0.3, Aspartate Amino Transf (AST/SGOT) 19 , Alanine Aminotransferase (ALT/SGPT) 23, Alkaline Phosphatase 164H, Total Protein 7.8, Albumin 1.5L, Globulin 6.3, Albumin/Globulin Ratio 0.2L 08/28/17 16:15: Urine Eosinophils Rare, Urine Random Creatinine [Pending], Urine Random Microalbumin [Pending], Urine Random Total Protein 77H, Urine Random Sodium 36, Urine Creatinine 25.7L, Urine Microalbumin/Creatinine Ratio [Pending] 08/29/17 08:55: White Blood Count [Pending], Red Blood Count [Pending], Hemoglobin [Pending], Hematocrit [Pending], Mean Corpuscular Volume [Pending], Mean Corpuscular Hemoglobin [Pending], Mean Corpuscular Hemoglobin Concent [Pending], Red Cell Distribution Width [Pending], Platelet Count [Pending], Mean Platelet Volume [ Pending], Neutrophils (%) (Auto) [Pending], Lymphocytes (%) (Auto) [Pending], Monocytes (%) (Auto) [Pending], Eosinophils (%) (Auto) [Pending], Basophils (%) (Auto) [Pending], Sodium Level [Pending], Potassium Level [Pending], Chloride Level [Pending], Carbon Dioxide Level [Pending], Blood Urea Nitrogen [Pending], Creatinine [Pending], Estimat Glomerular Filtration Rate [Pending], Glucose Level [Pending], Calcium Level [Pending], Lactic Acid Level [Pending], Gamma Glutamyl Transpeptidase [Pending], Random Vancomycin Level [Pending] Height (Feet): 5 Height (Inches): 7.00 Weight (Pounds): 77 Objective GENERAL: The patient is a chronically ill, malnourished female, in no acute distress. HEAD AND NECK: Bitemporal wasting. Extraocular movement intact. Pupils are reactive to light and accommodation. Sclera is pink. Dry mucous membranes. LUNGS: Clear to auscultation. CARDIAC: Regular rate and rhythm. S1 and S2. No murmur. No rub. ABDOMEN: Soft, nontender. G-tube is in place. EXTREMITIES: No edema, no clubbing, no cyanosis. SIMONE JACOBO Aug 29, 2017 09:20
[2017-08-29 09:39] LABS: ANION GAP 11 mmol/L (5-15); BLOOD UREA NITROGEN 132 mg/dL (7-18); CARBON DIOXIDE 26 MMOL/L (21-32); CHLORIDE 112 MMOL/L (98-107); CREATININE 2.2 MG/DL (0.55-1.30); POTASSIUM 3.7 MMOL/L (3.5-5.1); SODIUM 148 MMOL/L (136-145)
[2017-08-29] MEDS: Lactulose 20gm/30ml UDC GT SCH ×2 (09:53→18:34)
[2017-08-29] MEDS: Multivitamin w/Minerals tab ORAL SCH (09:54)
[2017-08-29] MEDS: Memantine 5 MG TAB GT SCH ×2 (09:54→18:34)
[2017-08-29] MEDS: Cefepime HCl 500 MG in D5W 55 ML IVPB SCH (09:57)
--- NOTE | 2017-08-29 10:36 | General Progress Note ---
Assessment/Plan Assessment/Plan Assessment - GI Bleed - Cachexia - OBS - Dysphagia - Hypernatremia - Azotemia Recommendations - EGD/Colon today - Increase free water - Follow Na and Cr - IV hydration - serial CBC - Transfuse PRN Subjective Allergies: Coded Allergies: PENICILLINS (Verified Allergy, Unknown, 08/28/17) Subjective non interactive (++) BM with prep - now light green NPO for EGD/Colon today Objective Last 24 Hour Vital Signs Date Time Temp Pulse Resp B/P (MAP) Pulse Ox O2 Delivery O2 Flow Rate FiO2 08/29/17 09:00 94 08/29/17 08:00 96.3 96 19 120/62 Room Air 96.3 08/29/17 04:00 97.3 102 24 116/57 Room Air 98.4 97.3 08/29/17 04:00 98 08/29/17 00:00 96 08/29/17 00:00 97.2 99 24 117/72 Room Air 98.0 97.2 08/28/17 20:00 91 08/28/17 20:00 97.7 89 22 144/67 Room Air 97.7 08/28/17 16:00 97.0 87 19 117/63 Room Air 97.0 08/28/17 16:00 85 08/28/17 12:00 98 08/28/17 12:00 96.9 98 18 115/47 92 Room Air 96.9 08/28/17 10:49 96.9 Intake and Output 08/28/17 08/29/17 19:00 07:00 Intake Total 655 ml 895 ml Output Total 1825 ml Balance 655 ml -930 ml Intake IV Total 655 ml 395 ml Blood Product 500 ml Output Urine Total 1825 ml # Bowel Movements 3 4 Laboratory Tests 08/28/17 16:15: Urine Eosinophils Rare, Urine Random Creatinine [Pending], Urine Random Microalbumin [Pending], Urine Random Total Protein 77H, Urine Random Sodium 36, Urine Creatinine 25.7L, Urine Microalbumin/Creatinine Ratio [Pending] 08/29/17 08:55: White Blood Count 18.0H, Red Blood Count 4.03L, Hemoglobin 12.2#, Hematocrit 36.6#L, Mean Corpuscular Volume 91, Mean Corpuscular Hemoglobin 30.2, Mean Corpuscular Hemoglobin Concent 33.3, Red Cell Distribution Width 14.9H, Platelet Count 561H, Mean Platelet Volume 5.5L, Neutrophils (%) (Auto) , Lymphocytes (%) (Auto) , Monocytes (%) (Auto) , Eosinophils (%) (Auto) , Basophils (%) (Auto) , Neutrophils % (Manual) [Pending], Lymphocytes % (Manual) [Pending], Platelet Estimate [Pending], Platelet Morphology [Pending], Sodium Level 148H, Potassium Level 3.7, Chloride Level 112H, Carbon Dioxide Level 26, Anion Gap 11, Blood Urea Nitrogen 132#H, Creatinine 2.2H, Estimat Glomerular Filtration Rate , Glucose Level 161H, Lactic Acid Level 1.60, Calcium Level 9.0 , Gamma Glutamyl Transpeptidase 20, Random Vancomycin Level [Pending] Height (Feet): 5 Height (Inches): 7.00 Weight (Pounds): 77 Objective Cachexic AA woman NCAT Supple CTA RRR Abd Soft ND NT, (+) GT ext no edema Neuro OBS VERO MATHIS Aug 29, 2017 10:36
--- NOTE | 2017-08-29 10:51 | Pre-Procedure Note/Attestation ---
Pre-Procedure Note/Attestation Complete Prior to Procedure Planned Procedure: not applicable Procedure Narrative: egd/colon Indications for Procedure Pre-Operative Diagnosis: GIB Attestation I attest that I discussed the nature of the procedure; its benefits; risks and complications; and alternatives (and the risks and benefits of such alternatives ), prior to the procedure, with the patient (or the patient's legal shared services representative). I attest that, if there was a reasonable possibility of needing a blood transfusion, the patient (or the patient's legal shared services representative) was given the [facility] standardized written summary, pursuant to the [place] Blood Safety Act ([place] Health and Safety Code # 1645, as amended). I attest that I re-evaluated the patient just prior to the surgery and that there has been no change in the patient's H&P, except as documented below: VERO MATHIS Aug 29, 2017 10:51
--- NOTE | 2017-08-29 11:08 | Internal Med Progress Note ---
Subjective Date of Service: Aug 29, 2017 Physician Name CarinaJoelle Attending Physician Karl Villegas MD Current Medications Medications (Trade) Dose Ordered Sig/Zeke Route PRN Reason Start Time Stop Time Status Last Admin Dose Admin Acetaminophen (Tylenol) 650 mg Q4H PRN ORAL Mild Pain (Pain Scale 1-3) 08/28/17 08:00 09/27/17 07:59 08/28/17 10:49 Al Hydroxide/Mg Hydroxide (Mylanta) 15 ml Q1H PRN ORAL gi upset 08/29/17 08:30 08/29/17 15:00 Atropine Sulfate (Atropine) 0.5 mg Q5M PRN IV bpm less than 45 08/29/17 08:30 08/29/17 15:00 Cefepime HCl 500 mg/Dextrose 55 ml @ 110 mls/hr Q24H IVPB 08/29/17 09:00 09/05/17 08:59 08/29/17 09:57 Dextrose (Dextrose 50%) STAT PRN IV Hypoglycemia 08/28/17 08:30 09/27/17 08:29 Dextrose/Sodium Chloride 1,000 ml @ 125 mls/hr Q8H IV 08/28/17 13:30 09/27/17 13:29 08/29/17 03:47 Diphenhydramine HCl (Benadryl) 25 mg Q15M PRN IVP Itching 08/29/17 08:30 08/29/17 15:00 Famotidine (Pepcid) 20 mg DAILY GT 08/28/17 09:00 09/27/17 08:59 08/29/17 09:54 Fentanyl Citrate (Sublimaze 100 mcg/2 mL) 25 mcg Q10M PRN IV Moderate Pain (Pain Scale 4-6) 08/29/17 08:30 08/29/17 15:00 Hydralazine HCl (Apresoline) 5 mg Q30M PRN IV SBP>160 OR___/DBP>90 OR___ 08/29/17 08:30 08/29/17 15:00 Insulin Aspart (NovoLOG) BEFORE MEALS AND HS SUBQ 08/28/17 11:30 09/27/17 11:29 Lactulose (Cephulac) 20 gm BID GT 08/28/17 09:00 09/27/17 08:59 08/29/17 09:53 Memantine (Namenda) 5 mg TWICE A DAY GT 08/28/17 09:00 09/27/17 08:59 08/29/17 09:54 Metronidazole (Flagyl) 500 mg Q8HR ORAL 08/28/17 22:00 09/04/17 21:59 08/29/17 05:43 Midazolam HCl (Versed 2mg/2ml vial) 1 mg Q15M PRN IVP For Anxiety 08/29/17 08:30 08/29/17 15:00 Mirtazapine (Remeron) 7.5 mg BEDTIME GT 08/28/17 21:00 09/27/17 20:59 08/28/17 21:58 Multivitamins Therapeutic (Therapeutic Multivitamin) 1 ea DAILY ORAL 08/28/17 09:00 09/27/17 08:59 08/29/17 09:54 Ondansetron HCl (Zofran) 4 mg Q1H PRN IVP Nausea & Vomiting 08/29/17 08:30 08/29/17 15:00 Tramadol HCl (Ultram) 50 mg Q4H PRN GT Moderate Pain (Pain Scale 4-6) 08/28/17 08:00 09/04/17 07:59 08/28/17 22:02 Vancomycin HCl (Vanco rx to dose) 1 ea DAILY PRN MISC Per rx protocol 08/28/17 08:00 09/27/17 07:59 Allergies: Coded Allergies: PENICILLINS (Verified Allergy, Unknown, 08/28/17) ROS Limited/Unobtainable: No Constitutional: Reports: no symptoms HEENT: Reports: no symptoms Cardiovascular: Reports: no symptoms Respiratory: Reports: no symptoms Gastrointestinal/Abdominal: Reports: rectal bleeding Genitourinary: Reports: no symptoms Neurologic/Psychiatric: Reports: no symptoms Subjective 86 YO F admitted with rectal bleeding. Await endoscopy/colonoscopy today. Cover for Int Cristian-Dr Villegas Objective Last Vital Signs Date Time Temp Pulse Resp B/P (MAP) Pulse Ox O2 Delivery O2 Flow Rate FiO2 08/29/17 09:00 94 08/29/17 08:00 96.3 19 120/62 Room Air 96.3 08/29/17 04:00 98.4 08/28/17 12:00 92 Laboratory Tests Test 08/28/17 16:15 08/29/17 08:55 Urine Eosinophils Rare Urine Random Creatinine Pending Urine Random Microalbumin Pending Urine Random Total Protein 77 MG/DL (< 11.9) H Urine Random Sodium 36 mmol/L (20-110) Urine Creatinine 25.7 MG/DL (30.0-125.0) L Urine Microalbumin/Creatinine Ratio Pending White Blood Count 18.0 K/UL (4.8-10.8) H Red Blood Count 4.03 M/UL (4.20-5.40) L Hemoglobin 12.2 G/DL (12.0-16.0) # Hematocrit 36.6 % (37.0-47.0) #L Mean Corpuscular Volume 91 FL (80-99) Mean Corpuscular Hemoglobin 30.2 PG (27.0-31.0) Mean Corpuscular Hemoglobin Concent 33.3 G/DL (32.0-36.0) Red Cell Distribution Width 14.9 % (11.6-14.8) H Platelet Count 561 K/UL (150-450) H Mean Platelet Volume 5.5 FL (6.5-10.1) L Neutrophils (%) (Auto) % (45.0-75.0) Lymphocytes (%) (Auto) % (20.0-45.0) Monocytes (%) (Auto) % (1.0-10.0) Eosinophils (%) (Auto) % (0.0-3.0) Basophils (%) (Auto) % (0.0-2.0) Differential Total Cells Counted 100 Neutrophils % (Manual) 87 % (45-75) H Lymphocytes % (Manual) 7 % (20-45) L Monocytes % (Manual) 6 % (1-10) Eosinophils % (Manual) 0 % (0-3) Basophils % (Manual) 0 % (0-2) Band Neutrophils 0 % (0-8) Platelet Estimate Increased H Platelet Morphology Normal Anisocytosis 1+ Sodium Level 148 MMOL/L (136-145) H Potassium Level 3.7 MMOL/L (3.5-5.1) Chloride Level 112 MMOL/L (98-107) H Carbon Dioxide Level 26 MMOL/L (21-32) Anion Gap 11 mmol/L (5-15) Blood Urea Nitrogen 132 mg/dL (7-18) #H Creatinine 2.2 MG/DL (0.55-1.30) H Estimat Glomerular Filtration Rate mL/min (>60) Glucose Level 161 MG/DL (74-106) H Lactic Acid Level 1.60 mmol/L (0.66-2.22) Calcium Level 9.0 MG/DL (8.5-10.1) Gamma Glutamyl Transpeptidase 20 U/L (5-85) Random Vancomycin Level 5.4 ug/mL Microbiology Date/Time Source Procedure Growth Status 08/28/17 03:00 Blood Blood Culture - Preliminary NO GROWTH AFTER 24 HOURS Resulted 08/28/17 02:45 Blood Blood Culture - Preliminary NO GROWTH AFTER 24 HOURS Resulted 08/28/17 04:00 Nasal Nares MRSA Culture - Final Staphylococcus Aureus - Mrsa Complete 08/28/17 03:14 Urine,Clean Catch Urine Culture - Preliminary Gram Negative Bacillus 1 Resulted Intake and Output 08/28/17 08/29/17 19:00 07:00 Intake Total 655 ml 895 ml Output Total 1825 ml Balance 655 ml -930 ml Intake IV Total 655 ml 395 ml Blood Product 500 ml Output Urine Total 1825 ml # Bowel Movements 3 4 JOELLE FROST Aug 29, 2017 11:08
--- NOTE | 2017-08-29 11:16 | Internal Med Progress Note ---
Subjective Date of Service: Aug 29, 2017 Physician Name CarinaJoelle Attending Physician Karl Villegas MD Current Medications Medications (Trade) Dose Ordered Sig/Zeke Route PRN Reason Start Time Stop Time Status Last Admin Dose Admin Acetaminophen (Tylenol) 650 mg Q4H PRN ORAL Mild Pain (Pain Scale 1-3) 08/28/17 08:00 09/27/17 07:59 08/28/17 10:49 Al Hydroxide/Mg Hydroxide (Mylanta) 15 ml Q1H PRN ORAL gi upset 08/29/17 08:30 08/29/17 15:00 Atropine Sulfate (Atropine) 0.5 mg Q5M PRN IV bpm less than 45 08/29/17 08:30 08/29/17 15:00 Cefepime HCl 500 mg/Dextrose 55 ml @ 110 mls/hr Q24H IVPB 08/29/17 09:00 09/05/17 08:59 08/29/17 09:57 Dextrose (Dextrose 50%) STAT PRN IV Hypoglycemia 08/28/17 08:30 09/27/17 08:29 Dextrose/Sodium Chloride 1,000 ml @ 125 mls/hr Q8H IV 08/28/17 13:30 09/27/17 13:29 08/29/17 03:47 Diphenhydramine HCl (Benadryl) 25 mg Q15M PRN IVP Itching 08/29/17 08:30 08/29/17 15:00 Famotidine (Pepcid) 20 mg DAILY GT 08/28/17 09:00 09/27/17 08:59 08/29/17 09:54 Fentanyl Citrate (Sublimaze 100 mcg/2 mL) 25 mcg Q10M PRN IV Moderate Pain (Pain Scale 4-6) 08/29/17 08:30 08/29/17 15:00 Hydralazine HCl (Apresoline) 5 mg Q30M PRN IV SBP>160 OR___/DBP>90 OR___ 08/29/17 08:30 08/29/17 15:00 Insulin Aspart (NovoLOG) BEFORE MEALS AND HS SUBQ 08/28/17 11:30 09/27/17 11:29 Lactulose (Cephulac) 20 gm BID GT 08/28/17 09:00 09/27/17 08:59 08/29/17 09:53 Memantine (Namenda) 5 mg TWICE A DAY GT 08/28/17 09:00 09/27/17 08:59 08/29/17 09:54 Metronidazole (Flagyl) 500 mg Q8HR ORAL 08/28/17 22:00 09/04/17 21:59 08/29/17 05:43 Midazolam HCl (Versed 2mg/2ml vial) 1 mg Q15M PRN IVP For Anxiety 08/29/17 08:30 08/29/17 15:00 Mirtazapine (Remeron) 7.5 mg BEDTIME GT 08/28/17 21:00 09/27/17 20:59 08/28/17 21:58 Multivitamins Therapeutic (Therapeutic Multivitamin) 1 ea DAILY ORAL 08/28/17 09:00 09/27/17 08:59 08/29/17 09:54 Ondansetron HCl (Zofran) 4 mg Q1H PRN IVP Nausea & Vomiting 08/29/17 08:30 08/29/17 15:00 Tramadol HCl (Ultram) 50 mg Q4H PRN GT Moderate Pain (Pain Scale 4-6) 08/28/17 08:00 09/04/17 07:59 08/28/17 22:02 Vancomycin HCl (Vanco rx to dose) 1 ea DAILY PRN MISC Per rx protocol 08/28/17 08:00 09/27/17 07:59 Allergies: Coded Allergies: PENICILLINS (Verified Allergy, Unknown, 08/28/17) ROS Limited/Unobtainable: No Constitutional: Reports: no symptoms HEENT: Reports: no symptoms Cardiovascular: Reports: no symptoms Respiratory: Reports: no symptoms Gastrointestinal/Abdominal: Reports: rectal bleeding Genitourinary: Reports: no symptoms Neurologic/Psychiatric: Reports: no symptoms Subjective 86 YO F admitted with rectal bleeding. Await endoscopy/colonoscopy today. Cover for Patric Foster-Dr Villegas Objective Last Vital Signs Date Time Temp Pulse Resp B/P (MAP) Pulse Ox O2 Delivery O2 Flow Rate FiO2 08/29/17 09:00 94 08/29/17 08:00 96.3 19 120/62 Room Air 96.3 08/29/17 04:00 98.4 08/28/17 12:00 92 General Appearance: WD/WN, no apparent distress, alert EENT: PERRL/EOMI, normal ENT inspection Neck: non-tender, normal alignment, supple Cardiovascular: normal peripheral pulses, normal rate, regular rhythm, no gallop/murmur, no JVD Respiratory/Chest: chest wall non-tender, lungs clear, normal breath sounds, no respiratory distress, no accessory muscle use Abdomen: soft, no organomegaly, no mass, decreased bowel sounds, tender Extremities: normal range of motion, non-tender 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, no motor/sensory deficits Skin: normal pigmentation, warm/dry Laboratory Tests Test 08/28/17 16:15 08/29/17 08:55 Urine Eosinophils Rare Urine Random Creatinine Pending Urine Random Microalbumin Pending Urine Random Total Protein 77 MG/DL (< 11.9) H Urine Random Sodium 36 mmol/L (20-110) Urine Creatinine 25.7 MG/DL (30.0-125.0) L Urine Microalbumin/Creatinine Ratio Pending White Blood Count 18.0 K/UL (4.8-10.8) H Red Blood Count 4.03 M/UL (4.20-5.40) L Hemoglobin 12.2 G/DL (12.0-16.0) # Hematocrit 36.6 % (37.0-47.0) #L Mean Corpuscular Volume 91 FL (80-99) Mean Corpuscular Hemoglobin 30.2 PG (27.0-31.0) Mean Corpuscular Hemoglobin Concent 33.3 G/DL (32.0-36.0) Red Cell Distribution Width 14.9 % (11.6-14.8) H Platelet Count 561 K/UL (150-450) H Mean Platelet Volume 5.5 FL (6.5-10.1) L Neutrophils (%) (Auto) % (45.0-75.0) Lymphocytes (%) (Auto) % (20.0-45.0) Monocytes (%) (Auto) % (1.0-10.0) Eosinophils (%) (Auto) % (0.0-3.0) Basophils (%) (Auto) % (0.0-2.0) Differential Total Cells Counted 100 Neutrophils % (Manual) 87 % (45-75) H Lymphocytes % (Manual) 7 % (20-45) L Monocytes % (Manual) 6 % (1-10) Eosinophils % (Manual) 0 % (0-3) Basophils % (Manual) 0 % (0-2) Band Neutrophils 0 % (0-8) Platelet Estimate Increased H Platelet Morphology Normal Anisocytosis 1+ Sodium Level 148 MMOL/L (136-145) H Potassium Level 3.7 MMOL/L (3.5-5.1) Chloride Level 112 MMOL/L (98-107) H Carbon Dioxide Level 26 MMOL/L (21-32) Anion Gap 11 mmol/L (5-15) Blood Urea Nitrogen 132 mg/dL (7-18) #H Creatinine 2.2 MG/DL (0.55-1.30) H Estimat Glomerular Filtration Rate mL/min (>60) Glucose Level 161 MG/DL (74-106) H Lactic Acid Level 1.60 mmol/L (0.66-2.22) Calcium Level 9.0 MG/DL (8.5-10.1) Gamma Glutamyl Transpeptidase 20 U/L (5-85) Random Vancomycin Level 5.4 ug/mL Microbiology Date/Time Source Procedure Growth Status 08/28/17 03:00 Blood Blood Culture - Preliminary NO GROWTH AFTER 24 HOURS Resulted 08/28/17 02:45 Blood Blood Culture - Preliminary NO GROWTH AFTER 24 HOURS Resulted 08/28/17 04:00 Nasal Nares MRSA Culture - Final Staphylococcus Aureus - Mrsa Complete 08/28/17 03:14 Urine,Clean Catch Urine Culture - Preliminary Gram Negative Bacillus 1 Resulted Intake and Output 08/28/17 08/29/17 19:00 07:00 Intake Total 655 ml 895 ml Output Total 1825 ml Balance 655 ml -930 ml Intake IV Total 655 ml 395 ml Blood Product 500 ml Output Urine Total 1825 ml # Bowel Movements 3 4 Assessment/Plan Problem List: (1) Alzheimer's dementia Assessment & Plan: Continue namenda (2) GERD (gastroesophageal reflux disease) Assessment & Plan: Continue pepcid (3) Dysphagia (4) HTN (hypertension) Assessment & Plan: Continue hydralazine (5) Major depression (6) Renal failure (7) Rectal bleed Assessment & Plan: Await endoscopy and colonoscopy today-see GI note (8) UTI (urinary tract infection) Assessment & Plan: Gram neg real-await ID and sensitivity. Await ID consult. Continue cefepime and vanco (9) Sepsis (10) Anemia Status: not improved JOELLE FROST Aug 29, 2017 11:16
[2017-08-29] MEDS ORDERED: Propofol 200mg/20ml IV ONE (11:30)
[2017-08-29] MEDS ORDERED: Lidocaine 1% MPF 10mg/ml 5ml ONE (11:30)
[2017-08-29] MEDS ORDERED: NS 500ML IV ONE ×2 (12:00→12:47)
--- NOTE | 2017-08-29 13:21 | Immediate Post-Op Evaluation ---
Immediate Post-Op Evalulation Immediate Post-Op Evalulation Procedure: egd/colonoscopy w/bx Date of Evaluation: Aug 29, 2017 Time of Evaluation: 13:15 IV Fluids: 500ml 0.9ns Blood Products: none Estimated Blood Loss: negligible Blood Pressure Systolic: 134 Blood Pressure Diastolic: 64 Pulse Rate: 79 Respiratory Rate: 18 O2 Sat by Pulse Oximetry: 99 Temperature (Fahrenheit): 98.1 Pain Score (1-10): 0 Nausea: No Vomiting: No Complications none Patient Status: awake, reacts, patent Hydration Status: adequate Drug: ELYSIA Laboy Aug 29, 2017 13:21
--- NOTE | 2017-08-29 13:22 | Consultation ---
History of Present Illness General Date patient seen: Aug 29, 2017 Time patient seen: 13:03 Chief Complaint: Gastrointestinal Bleed Present Illness HPI 86 y/o F with hx of GERD, malnutrition/dysphagia s/p GT placement ~6 months ago , CKD, MDD, Dementia, non verbal, HTN , jail resident, [facility] is brought to ED on 08/28 with BRBPR. Foudn to be hypotensive by EMS which improved with IVFs. No fever. Leukocytosis up to 28, now down to 18. U/a with pyuria. No nausea, vomiting, f/c For EGD and colonoscopy today. Allergies: Coded Allergies: PENICILLINS (Verified Allergy, Unknown, 08/28/17) Medication History Scheduled Doxycycline Hyclate* (Vibramycin*), 100 MG ORAL EVERY 12 HOURS, (Reported) Famotidine (Famotidine), 20 MG GT DAILY, (Reported) Ferrous Sulfate* (Ferrous Sulfate*), 325 MG GT BID, (Reported) Heparin Sod (Porcine) (Heparin Sodium*), 5,000 UNITS SUBQ EVERY 12 HOURS, ( Reported) Ipratropium/Albuterol Sulfate (Combivent Respimat Inhal Strum), 3 GM IH QID, ( Reported) Lactulose (Lactulose*), 30 ML GT BID, (Reported) Memantine Hcl* (Namenda*), 5 MG GT TWICE A DAY, (Reported) Mirtazapine* (Mirtazapine*), 7.5 MG GT BEDTIME, (Reported) Multivitamin With Minerals (Multivitamins With Minerals*), 1 TAB GT DAILY, ( Reported) Mupirocin Calcium (Bactroban), 1 APPLIC TOPIC DAILY, (Reported) Scheduled PRN Acetaminophen* (Acetaminophen 325MG Tablet*), 650 MG GT Q4H PRN for For Pain, ( Reported) Insulin Regular, Human (Humulin R), 0 SUBQ ACHS PRN for Sliding Scale, (Reported ) Tramadol Hcl* (Ultram*), 50 MG GT Q4HR PRN for For Pain, (Reported) Patient History Healthcare decision maker Resuscitation status Full Code Advanced Directive on File Patient History Narrative Pmx: as above Shx: The patient has had no history of smoking or drinking. She is from a jail. Fhx: non contributory Review of Systems ROS Narrative unable to obtain Physical Exam Physical Exam Narrative GENERAL: Debilitated, thin, woman, seen in her room with the nurse at bedside. HEENT: Normocephalic. There was temporal wasting. NECK: Supple. CHEST: Revealed coarse breath sounds. CARDIOVASCULAR: Revealed a regular rate. ABDOMEN: Soft with gastrostomy tube in good position. EXTREMITIES: Revealed no edema. RECTAL: From external view showed dark red stools. Last 24 Hour Vital Signs Date Time Temp Pulse Resp B/P (MAP) Pulse Ox O2 Delivery O2 Flow Rate FiO2 08/29/17 09:00 94 08/29/17 08:00 96.3 96 19 120/62 Room Air 96.3 08/29/17 04:00 97.3 102 24 116/57 Room Air 98.4 97.3 08/29/17 04:00 98 08/29/17 00:00 96 08/29/17 00:00 97.2 99 24 117/72 Room Air 98.0 97.2 08/28/17 20:00 91 08/28/17 20:00 97.7 89 22 144/67 Room Air 97.7 08/28/17 16:00 97.0 87 19 117/63 Room Air 97.0 08/28/17 16:00 85 Intake and Output 08/28/17 08/29/17 19:00 07:00 Intake Total 655 ml 895 ml Output Total 1825 ml Balance 655 ml -930 ml Intake IV Total 655 ml 395 ml Blood Product 500 ml Output Urine Total 1825 ml # Bowel Movements 3 4 Laboratory Tests Test 08/28/17 16:15 08/29/17 08:55 Urine Eosinophils Rare Urine Random Creatinine Pending Urine Random Microalbumin Pending Urine Random Total Protein 77 MG/DL (< 11.9) H Urine Random Sodium 36 mmol/L (20-110) Urine Creatinine 25.7 MG/DL (30.0-125.0) L Urine Microalbumin/Creatinine Ratio Pending White Blood Count 18.0 K/UL (4.8-10.8) H Red Blood Count 4.03 M/UL (4.20-5.40) L Hemoglobin 12.2 G/DL (12.0-16.0) # Hematocrit 36.6 % (37.0-47.0) #L Mean Corpuscular Volume 91 FL (80-99) Mean Corpuscular Hemoglobin 30.2 PG (27.0-31.0) Mean Corpuscular Hemoglobin Concent 33.3 G/DL (32.0-36.0) Red Cell Distribution Width 14.9 % (11.6-14.8) H Platelet Count 561 K/UL (150-450) H Mean Platelet Volume 5.5 FL (6.5-10.1) L Neutrophils (%) (Auto) % (45.0-75.0) Lymphocytes (%) (Auto) % (20.0-45.0) Monocytes (%) (Auto) % (1.0-10.0) Eosinophils (%) (Auto) % (0.0-3.0) Basophils (%) (Auto) % (0.0-2.0) Differential Total Cells Counted 100 Neutrophils % (Manual) 87 % (45-75) H Lymphocytes % (Manual) 7 % (20-45) L Monocytes % (Manual) 6 % (1-10) Eosinophils % (Manual) 0 % (0-3) Basophils % (Manual) 0 % (0-2) Band Neutrophils 0 % (0-8) Platelet Estimate Increased H Platelet Morphology Normal Anisocytosis 1+ Sodium Level 148 MMOL/L (136-145) H Potassium Level 3.7 MMOL/L (3.5-5.1) Chloride Level 112 MMOL/L (98-107) H Carbon Dioxide Level 26 MMOL/L (21-32) Anion Gap 11 mmol/L (5-15) Blood Urea Nitrogen 132 mg/dL (7-18) #H Creatinine 2.2 MG/DL (0.55-1.30) H Estimat Glomerular Filtration Rate mL/min (>60) Glucose Level 161 MG/DL (74-106) H Lactic Acid Level 1.60 mmol/L (0.66-2.22) Calcium Level 9.0 MG/DL (8.5-10.1) Gamma Glutamyl Transpeptidase 20 U/L (5-85) Random Vancomycin Level 5.4 ug/mL Height (Feet): 5 Height (Inches): 7.00 Weight (Pounds): 77 Medications Current Medications Medications (Trade) Dose Ordered Sig/Zeke Route PRN Reason Start Time Stop Time Status Last Admin Dose Admin Acetaminophen (Tylenol) 650 mg Q4H PRN ORAL Mild Pain (Pain Scale 1-3) 08/28/17 08:00 09/27/17 07:59 08/28/17 10:49 Al Hydroxide/Mg Hydroxide (Mylanta) 15 ml Q1H PRN ORAL gi upset 08/29/17 08:30 08/29/17 15:00 Atropine Sulfate (Atropine) 0.5 mg Q5M PRN IV bpm less than 45 08/29/17 08:30 08/29/17 15:00 Cefepime HCl 500 mg/Dextrose 55 ml @ 110 mls/hr Q24H IVPB 08/29/17 09:00 09/05/17 08:59 08/29/17 09:57 Dextrose (Dextrose 50%) STAT PRN IV Hypoglycemia 08/28/17 08:30 09/27/17 08:29 Dextrose/Sodium Chloride 1,000 ml @ 125 mls/hr Q8H IV 08/28/17 13:30 09/27/17 13:29 08/29/17 03:47 Diphenhydramine HCl (Benadryl) 25 mg Q15M PRN IVP Itching 08/29/17 08:30 08/29/17 15:00 Famotidine (Pepcid) 20 mg DAILY GT 08/28/17 09:00 09/27/17 08:59 08/29/17 09:54 Fentanyl Citrate (Sublimaze 100 mcg/2 mL) 25 mcg Q10M PRN IV Moderate Pain (Pain Scale 4-6) 08/29/17 08:30 08/29/17 15:00 Hydralazine HCl (Apresoline) 5 mg Q30M PRN IV SBP>160 OR___/DBP>90 OR___ 08/29/17 08:30 08/29/17 15:00 Insulin Aspart (NovoLOG) BEFORE MEALS AND HS SUBQ 08/28/17 11:30 09/27/17 11:29 Lactulose (Cephulac) 20 gm BID GT 08/28/17 09:00 09/27/17 08:59 08/29/17 09:53 Memantine (Namenda) 5 mg TWICE A DAY GT 08/28/17 09:00 09/27/17 08:59 08/29/17 09:54 Metronidazole (Flagyl) 500 mg Q8HR ORAL 08/28/17 22:00 09/04/17 21:59 08/29/17 05:43 Midazolam HCl (Versed 2mg/2ml vial) 1 mg Q15M PRN IVP For Anxiety 08/29/17 08:30 08/29/17 15:00 Mirtazapine (Remeron) 7.5 mg BEDTIME GT 08/28/17 21:00 09/27/17 20:59 08/28/17 21:58 Multivitamins Therapeutic (Therapeutic Multivitamin) 1 ea DAILY ORAL 08/28/17 09:00 09/27/17 08:59 08/29/17 09:54 Ondansetron HCl (Zofran) 4 mg Q1H PRN IVP Nausea & Vomiting 08/29/17 08:30 08/29/17 15:00 Tramadol HCl (Ultram) 50 mg Q4H PRN GT Moderate Pain (Pain Scale 4-6) 08/28/17 08:00 09/04/17 07:59 08/28/17 22:02 Vancomycin HCl (Vanco rx to dose) 1 ea DAILY PRN MISC Per rx protocol 08/28/17 08:00 09/27/17 07:59 Vancomycin/Sodium Chloride 250 ml @ 166.667 mls/hr ONCE ONCE IVPB 08/29/17 14:00 08/29/17 15:29 Assessment/Plan Assessment/Plan Abx: IV Vancomycin 08/28- CEfepime 08/28- Flagyl 08/28- Assessment: GIB Sepsis -likely due to UTI- r/o bacteremia from GI translocation Leukocytosis, improving- probably combination of reactive to GIB and infection -afebrile -u/a wbc tntc, nit -, leuk +; ucx >100K GNR -BCx NTD -CXR: Examination significantly limited by patient contraction and positioning. Perihilar interstitial prominence and mild edema or interstitial infiltrates not excluded. GERD malnutrition/dysphagia s/p GT placement ~6 months ago CKD MDD Dementia non verbal HTN jail resident HLD Plan: -D/c empiric IV Vancomcyin #2 -Continue Cefepime and Flagyl #2 pending ucx and for intraabdominal coverage in the setting of GIB -f/u cx -Monitor CBC/BMP, temperatures -for EGD/COlo today -aspiration precautions Thank you for this consultation. Will continue to follow along with you. Discussed with JOSE. Kristen Araujo M.D. Aug 29, 2017 13:22
--- NOTE | 2017-08-29 13:23 | 48 Hour Post Anesthesia Eval ---
Post Anesthesia Evaluation Procedure: egd/colonoscopy w/bx Date of Evaluation: Aug 29, 2017 Time of Evaluation: 13:22 Blood Pressure Systolic: 133 0: 77 Pulse Rate: 77 Respiratory Rate: 18 Temperature (Fahrenheit): 98.1 O2 Sat by Pulse Oximetry: 99 Airway: patent Nausea: No Vomiting: No Pain Intensity: 0 Hydration Status: adequate Cardiopulmonary Status: stable Mental Status/LOC: patient returned to baseline Post-Anesthesia Complications: none Follow-up care needed: N/A ELYSIA EDGE Aug 29, 2017 13:23
[2017-08-29] MEDS ORDERED: Vancomycin 750mg/NS 250ml IVPB ONE (14:00)
--- NOTE | 2017-08-29 15:06 | Consultation ---
History of Present Illness General Date patient seen: Aug 28, 2017 Chief Complaint: Gastrointestinal Bleed Present Illness HPI 86-year-old female with history of dementia and feeding tube. the pt has hx of depression. Im familiar with pt from her shelter. the pt is confused and has episodes of agitation Allergies: Coded Allergies: PENICILLINS (Verified Allergy, Unknown, 08/28/17) Medication History Scheduled Doxycycline Hyclate* (Vibramycin*), 100 MG ORAL EVERY 12 HOURS, (Reported) Famotidine (Famotidine), 20 MG GT DAILY, (Reported) Ferrous Sulfate* (Ferrous Sulfate*), 325 MG GT BID, (Reported) Heparin Sod (Porcine) (Heparin Sodium*), 5,000 UNITS SUBQ EVERY 12 HOURS, ( Reported) Ipratropium/Albuterol Sulfate (Combivent Respimat Inhal [place]), 3 GM IH QID, ( Reported) Lactulose (Lactulose*), 30 ML GT BID, (Reported) Memantine Hcl* (Namenda*), 5 MG GT TWICE A DAY, (Reported) Mirtazapine* (Mirtazapine*), 7.5 MG GT BEDTIME, (Reported) Multivitamin With Minerals (Multivitamins With Minerals*), 1 TAB GT DAILY, ( Reported) Mupirocin Calcium (Bactroban), 1 APPLIC TOPIC DAILY, (Reported) Scheduled PRN Acetaminophen* (Acetaminophen 325MG Tablet*), 650 MG GT Q4H PRN for For Pain, ( Reported) Insulin Regular, Human (Humulin R), 0 SUBQ ACHS PRN for Sliding Scale, (Reported ) Tramadol Hcl* (Ultram*), 50 MG GT Q4HR PRN for For Pain, (Reported) Patient History History Provided By: Patient, Medical Record, PMD Healthcare decision maker Resuscitation status Full Code Advanced Directive on File Past Medical/Surgical History Past Medical/Surgical History: (1) Anemia (2) Proteinuria (3) GI bleed (4) ARF (acute renal failure) (5) Dysphagia (6) Major depression (7) Renal failure (8) Sepsis (9) UTI (urinary tract infection) (10) GERD (gastroesophageal reflux disease) (11) HTN (hypertension) (12) Rectal bleed (13) Alzheimer's dementia Review of Systems Psychiatric: Reports: anxiety, depressed feelings, emotional problems Physical Exam General Appearance: no apparent distress, alert, confused, agitated Last 24 Hour Vital Signs Date Time Temp Pulse Resp B/P (MAP) Pulse Ox O2 Delivery O2 Flow Rate FiO2 08/29/17 13:37 98.0 80 20 133/56 100 Room Air 98.0 08/29/17 13:26 80 20 130/76 100 Room Air 08/29/17 13:23 208.6 77 18 99 08/29/17 13:21 208.6 79 18 99 08/29/17 13:08 80 20 132/65 100 Simple Mask 8.0 08/29/17 13:03 98.1 80 20 134/64 99 Simple Mask 8.0 98.1 08/29/17 12:00 93 08/29/17 09:00 94 08/29/17 08:00 96.3 96 19 120/62 Room Air 96.3 08/29/17 04:00 97.3 102 24 116/57 Room Air 98.4 97.3 08/29/17 04:00 98 08/29/17 00:00 96 08/29/17 00:00 97.2 99 24 117/72 Room Air 98.0 97.2 08/28/17 20:00 91 08/28/17 20:00 97.7 89 22 144/67 Room Air 97.7 08/28/17 16:00 97.0 87 19 117/63 Room Air 97.0 08/28/17 16:00 85 Intake and Output 08/28/17 08/29/17 19:00 07:00 Intake Total 655 ml 895 ml Output Total 1825 ml Balance 655 ml -930 ml Intake IV Total 655 ml 395 ml Blood Product 500 ml Output Urine Total 1825 ml # Bowel Movements 3 4 Laboratory Tests Test 08/28/17 16:15 08/29/17 08:55 Urine Eosinophils Rare Urine Random Creatinine Pending Urine Random Microalbumin Pending Urine Random Total Protein 77 MG/DL (< 11.9) H Urine Random Sodium 36 mmol/L (20-110) Urine Creatinine 25.7 MG/DL (30.0-125.0) L Urine Microalbumin/Creatinine Ratio Pending White Blood Count 18.0 K/UL (4.8-10.8) H Red Blood Count 4.03 M/UL (4.20-5.40) L Hemoglobin 12.2 G/DL (12.0-16.0) # Hematocrit 36.6 % (37.0-47.0) #L Mean Corpuscular Volume 91 FL (80-99) Mean Corpuscular Hemoglobin 30.2 PG (27.0-31.0) Mean Corpuscular Hemoglobin Concent 33.3 G/DL (32.0-36.0) Red Cell Distribution Width 14.9 % (11.6-14.8) H Platelet Count 561 K/UL (150-450) H Mean Platelet Volume 5.5 FL (6.5-10.1) L Neutrophils (%) (Auto) % (45.0-75.0) Lymphocytes (%) (Auto) % (20.0-45.0) Monocytes (%) (Auto) % (1.0-10.0) Eosinophils (%) (Auto) % (0.0-3.0) Basophils (%) (Auto) % (0.0-2.0) Differential Total Cells Counted 100 Neutrophils % (Manual) 87 % (45-75) H Lymphocytes % (Manual) 7 % (20-45) L Monocytes % (Manual) 6 % (1-10) Eosinophils % (Manual) 0 % (0-3) Basophils % (Manual) 0 % (0-2) Band Neutrophils 0 % (0-8) Platelet Estimate Increased H Platelet Morphology Normal Anisocytosis 1+ Sodium Level 148 MMOL/L (136-145) H Potassium Level 3.7 MMOL/L (3.5-5.1) Chloride Level 112 MMOL/L (98-107) H Carbon Dioxide Level 26 MMOL/L (21-32) Anion Gap 11 mmol/L (5-15) Blood Urea Nitrogen 132 mg/dL (7-18) #H Creatinine 2.2 MG/DL (0.55-1.30) H Estimat Glomerular Filtration Rate mL/min (>60) Glucose Level 161 MG/DL (74-106) H Lactic Acid Level 1.60 mmol/L (0.66-2.22) Calcium Level 9.0 MG/DL (8.5-10.1) Gamma Glutamyl Transpeptidase 20 U/L (5-85) Random Vancomycin Level 5.4 ug/mL Height (Feet): 5 Height (Inches): 7.00 Weight (Pounds): 77 Medications Current Medications Medications (Trade) Dose Ordered Sig/Zeke Route PRN Reason Start Time Stop Time Status Last Admin Dose Admin Acetaminophen (Tylenol) 650 mg Q4H PRN ORAL Mild Pain (Pain Scale 1-3) 08/28/17 08:00 09/27/17 07:59 08/28/17 10:49 Cefepime HCl 500 mg/Dextrose 55 ml @ 110 mls/hr Q24H IVPB 08/29/17 09:00 09/05/17 08:59 08/29/17 09:57 Dextrose (Dextrose 50%) STAT PRN IV Hypoglycemia 08/28/17 08:30 09/27/17 08:29 Dextrose/Sodium Chloride 1,000 ml @ 125 mls/hr Q8H IV 08/28/17 13:30 09/27/17 13:29 08/29/17 03:47 Famotidine (Pepcid) 20 mg DAILY GT 08/28/17 09:00 09/27/17 08:59 08/29/17 09:54 Insulin Aspart (NovoLOG) BEFORE MEALS AND HS SUBQ 08/28/17 11:30 09/27/17 11:29 Lactulose (Cephulac) 20 gm BID GT 08/28/17 09:00 09/27/17 08:59 08/29/17 09:53 Memantine (Namenda) 5 mg TWICE A DAY GT 08/28/17 09:00 09/27/17 08:59 08/29/17 09:54 Metronidazole (Flagyl) 500 mg Q8HR ORAL 08/28/17 22:00 09/04/17 21:59 08/29/17 05:43 Mirtazapine (Remeron) 7.5 mg BEDTIME GT 08/28/17 21:00 09/27/17 20:59 08/28/17 21:58 Multivitamins Therapeutic (Therapeutic Multivitamin) 1 ea DAILY ORAL 08/28/17 09:00 09/27/17 08:59 08/29/17 09:54 Tramadol HCl (Ultram) 50 mg Q4H PRN GT Moderate Pain (Pain Scale 4-6) 08/28/17 08:00 09/04/17 07:59 08/28/17 22:02 Assessment/Plan Assessment/Plan encephalopathy agitation dementia with behavioral disturbance -cont remeron -cont aricept Farhadi,Pantea M.D. Aug 29, 2017 15:06
--- NOTE | 2017-08-29 15:07 | General Progress Note ---
Assessment/Plan Assessment/Plan encephalopathy agitation dementia with behavioral disturbance -cont remeron -cont aricept Subjective Date patient seen: Aug 29, 2017 Neurologic/Psychiatric: Reports: anxiety, depressed, emotional problems Allergies: Coded Allergies: PENICILLINS (Verified Allergy, Unknown, 08/28/17) Objective Last 24 Hour Vital Signs Date Time Temp Pulse Resp B/P (MAP) Pulse Ox O2 Delivery O2 Flow Rate FiO2 08/29/17 13:37 98.0 80 20 133/56 100 Room Air 98.0 08/29/17 13:26 80 20 130/76 100 Room Air 08/29/17 13:23 208.6 77 18 99 08/29/17 13:21 208.6 79 18 99 08/29/17 13:08 80 20 132/65 100 Simple Mask 8.0 08/29/17 13:03 98.1 80 20 134/64 99 Simple Mask 8.0 98.1 08/29/17 12:00 93 08/29/17 09:00 94 08/29/17 08:00 96.3 96 19 120/62 Room Air 96.3 08/29/17 04:00 97.3 102 24 116/57 Room Air 98.4 97.3 08/29/17 04:00 98 08/29/17 00:00 96 08/29/17 00:00 97.2 99 24 117/72 Room Air 98.0 97.2 08/28/17 20:00 91 08/28/17 20:00 97.7 89 22 144/67 Room Air 97.7 08/28/17 16:00 97.0 87 19 117/63 Room Air 97.0 08/28/17 16:00 85 Intake and Output 08/28/17 08/29/17 19:00 07:00 Intake Total 655 ml 895 ml Output Total 1825 ml Balance 655 ml -930 ml Intake IV Total 655 ml 395 ml Blood Product 500 ml Output Urine Total 1825 ml # Bowel Movements 3 4 Laboratory Tests 08/28/17 16:15: Urine Eosinophils Rare, Urine Random Creatinine [Pending], Urine Random Microalbumin [Pending], Urine Random Total Protein 77H, Urine Random Sodium 36, Urine Creatinine 25.7L, Urine Microalbumin/Creatinine Ratio [Pending] 08/29/17 08:55: White Blood Count 18.0H, Red Blood Count 4.03L, Hemoglobin 12.2#, Hematocrit 36.6#L, Mean Corpuscular Volume 91, Mean Corpuscular Hemoglobin 30.2, Mean Corpuscular Hemoglobin Concent 33.3, Red Cell Distribution Width 14.9H, Platelet Count 561H, Mean Platelet Volume 5.5L, Neutrophils (%) (Auto) , Lymphocytes (%) (Auto) , Monocytes (%) (Auto) , Eosinophils (%) (Auto) , Basophils (%) (Auto) , Differential Total Cells Counted 100, Neutrophils % ( Manual) 87H, Lymphocytes % (Manual) 7L, Monocytes % (Manual) 6, Eosinophils % ( Manual) 0, Basophils % (Manual) 0, Band Neutrophils 0, Platelet Estimate IncreasedH, Platelet Morphology Normal, Anisocytosis 1+, Sodium Level 148H, Potassium Level 3.7, Chloride Level 112H, Carbon Dioxide Level 26, Anion Gap 11 , Blood Urea Nitrogen 132#H, Creatinine 2.2H, Estimat Glomerular Filtration Rate , Glucose Level 161H, Lactic Acid Level 1.60, Calcium Level 9.0, Gamma Glutamyl Transpeptidase 20, Random Vancomycin Level 5.4 Height (Feet): 5 Height (Inches): 7.00 Weight (Pounds): 77 General Appearance: alert, mild distress, agitated Poppy Mercado M.D. Aug 29, 2017 15:06
--- NOTE | 2017-08-29 20:56 | Wound Care Consultation ---
Wound Assessment Wound Assessment : Wound Number: 1 Wound Present on Admission: Yes New Wound: No Status Change of Wound: No Wound Location Body Site: perianal Wound Type: erosion Megan Test: Does not Megan Wound Thickness: Partial Thickness Percent of Wound [place]/Red: 100 Wound Drainage Amount: None Wound Drainage Odor: None/Absent Tissue Surrounding Wound: Intact Wound General Appearance: Reddened Wound Comment #1 Perianal Partial thickness erosion Recommendation -Local wound care per protocol -Turn and reposition -Keep clean and dry -Optimize nutrition -Low air loss mattress -Offload both heels -Heel protector on both heels -Assess and f/u accordingly for any changes SHAUNA MARQUEZ RN Aug 29, 2017 20:56
--- NOTE | 2017-08-29 22:03 | Brief Operative Note ---
Immediate Post Operative Note Operative Note Chief Complaint: gib Pre-op Diagnosis: GIB Procedure: esophagogastroduodenoscopybx colon bx Post-op Diagnosis: mild gastritis - bx, cecal ulceration- bx Surgeon: ghassan Anesthesiologist: see report Anesthesia: MAC Specimen: yes Complications: none Condition: stable Fluids: recorded Estimated Blood Loss: none Drains: none Implant(s) used?: No VERO MATHIS Aug 29, 2017 22:03
--- NOTE | 2017-08-29 22:05 | Endoscopy Procedure Note ---
Endoscopy Procedure Note General Indication for Procedure: gib Procedures Performed: EGD, colonoscopy Operative Findings/Diagnosis: mild gastritis - bx, cecal ulceration- bx Specimen: yes Pt Tolerated Procedure Well: Yes Estimated Blood Loss: none Anesthesia Anesthesiologist: zohra smith Anesthesia: MAC Medications Medication Given: see anesthesia record Inserted Devices Implant(s) used?: No Quality Quality of Bowel Preparation: Fair GI Core Measures 50 yrs or older w/o bx or poly: Not Applicable 10yrs. F/U not recommended: Not Applicable If not recommended, why?: VERO MATHIS Aug 29, 2017 22:05
[2017-08-30] VITALS: BP 118/71
[2017-08-30] MEDS: D5 1/2NS 1,000 ML IV SCH ×3 (00:42→15:27)
[2017-08-30 04:00] VITALS: BP 129/66
[2017-08-30] MEDS: metroNIDAZOLE 500mg tab ORAL SCH ×3 (05:44→21:25)
[2017-08-30] MEDS: NovoLOG Insulin Flexpen SUBQ SCH ×4 (06:30→21:00)
[2017-08-30 08:00] VITALS: BP 146/72
[2017-08-30] MEDS: Lactulose 20gm/30ml UDC GT SCH ×2 (09:17→18:17)
[2017-08-30] MEDS: Cefepime HCl 500 MG in D5W 55 ML IVPB SCH (09:18)
[2017-08-30] MEDS: Multivitamin w/Minerals tab ORAL SCH (09:30)
[2017-08-30] MEDS: Memantine 5 MG TAB GT SCH ×2 (09:30→18:21)
--- NOTE | 2017-08-30 11:00 | Procedure Note ---
DATE OF PROCEDURE: 08/29/2017 PROCEDURE: Upper gastrointestinal endoscopy with biopsy as well as colonoscopy with biopsy. SURGEON: Kadi Mckeon M.D. ANESTHESIA: Please see the separate anesthesiologist notes for details. PRE-ENDOSCOPIC DIAGNOSIS: Gastrointestinal bleeding. POST-ENDOSCOPIC DIAGNOSES: 1. Mild gastritis, status post biopsy. 2. Colonic diverticulosis. 3. Cecal ulcer, status post biopsy. DESCRIPTION OF PROCEDURE: The procedure, its risks, indications, alternatives, and complications were explained to the patient's family and informed consent was obtained. The patient was then sedated in the left lateral decubitus position. The endoscope was introduced through the oropharynx and advanced to the duodenum. The endoscope was then gradually withdrawn and the mucosa examined carefully. The gastrostomy tube was in good position and there was small amount of gastritis, which was biopsied. The colonoscope was then introduced into the rectum and advanced to the cecum. The colonoscope was then gradually withdrawn and the mucosa examined carefully. Examination of the colonic mucosa revealed one third circumferential flat ulcer with sharp edges in the cecum. Biopsies of the ulceration was sent to pathology for review. There was otherwise left greater than right-sided colonic diverticulosis. The colonoscope was removed. The patient was sent to recovery in good condition. COMPLICATIONS: None. ASSESSMENT: Notes is somewhat large ulceration in the cecum. The ulceration may be the cause of the gastrointestinal bleeding, in which case she will have to be evaluated for ischemic injury versus malignancy. Ultimately, the bleeding may have been diverticular in nature. The ulcer may have formed from the low perfusion and ischemia. In either case, the patient is no longer bleeding at this time and therefore should be managed conservatively. I will follow up the biopsy results. RECOMMENDATIONS: Per above discussion and per orders written in the chart. Thank you for asking me to participate in the care of this patient. Kadi Mckeon M.D. DR: Jesi JOB#: [id number] CC: [id number]
--- NOTE | 2017-08-30 11:11 | Infectious Diseases Prog Note ---
Assessment/Plan Assessment/Plan Assessment: GIB Sepsis -likely due to UTI and bacteremia (?from UTI or from GI translocation) Leukocytosis, improving- probably combination of reactive to GIB and infection; no CBC today -afebrile -u/a wbc tntc, nit -, leuk +; ucx >100K GNR -BCx 06/09 GNRs Doubt PNA -CXR: Examination significantly limited by patient contraction and positioning. Perihilar interstitial prominence and mild edema or interstitial infiltrates not excluded. -sp cx GNR, S. aureus (likely colonizers) GIB -s/p EGD/Mckenna 08/29: 1. Mild gastritis, status post biopsy. 2. Colonic diverticulosis. 3. Cecal ulcer, status post biopsy. GERD malnutrition/dysphagia s/p GT placement ~6 months ago CKD MDD Dementia non verbal HTN [facility] resident HLD Plan: -Continue Cefepime and Flagyl #3 pending ucx and Bcx -monitor closely if febrile, worsening leukocytosis, switch abx to Meropenem for ESBL coverage -if increased O2 requirements and new CXR infiltrates, re-initiate IV Vancomycin -08/29 SP IV Vancomycin #2 -2 sets of Bcx -f/u cx -Monitor CBC/BMP, temperatures -aspiration precautions -CBC, CXR am Thank you for this consultation. Will continue to follow along with you. Discussed with RN. Subjective Allergies: Coded Allergies: PENICILLINS (Verified Allergy, Unknown, 08/28/17) Subjective afebrile s/p EGD and colo yesterday no cbc today bacteremic with GNRs Objective Vital Signs Last 24 Hour Vital Signs Date Time Temp Pulse Resp B/P (MAP) Pulse Ox O2 Delivery O2 Flow Rate FiO2 08/30/17 08:00 97.9 100 20 146/72 93 Room Air 97.9 08/30/17 04:00 104 08/30/17 04:00 96.2 98 18 129/66 94 Room Air 96.2 08/30/17 00:00 103 08/30/17 00:00 96.4 89 18 118/71 99 Room Air 96.4 08/29/17 20:00 99 08/29/17 20:00 97.4 86 18 120/59 91 Room Air 97.4 08/29/17 16:00 97 08/29/17 16:00 97.3 95 18 124/69 90 Room Air 97.3 08/29/17 13:37 98.0 80 20 133/56 100 Room Air 98.0 08/29/17 13:26 80 20 130/76 100 Room Air 08/29/17 13:23 208.6 77 18 99 08/29/17 13:21 208.6 79 18 99 08/29/17 13:08 80 20 132/65 100 Simple Mask 8.0 08/29/17 13:03 98.1 80 20 134/64 99 Simple Mask 8.0 98.1 08/29/17 12:00 93 Height (Feet): 5 Height (Inches): 7.00 Weight (Pounds): 77 Objective GENERAL: Debilitated, thin, woman, seen in her room with the nurse at bedside. HEENT: Normocephalic. There was temporal wasting. NECK: Supple. CHEST: Revealed coarse breath sounds. CARDIOVASCULAR: Revealed a regular rate. ABDOMEN: Soft with gastrostomy tube in good position. EXTREMITIES: Revealed no edema. RECTAL: From external view showed dark red stools. Microbiology Date/Time Source Procedure Growth Status 08/28/17 03:00 Blood Blood Culture - Preliminary Gram Negative Bacillus 1 Resulted 08/28/17 02:45 Blood Blood Culture - Preliminary NO GROWTH AFTER 48 HOURS Resulted 08/28/17 04:00 Nasal Nares MRSA Culture - Final Staphylococcus Aureus - Mrsa Complete 08/28/17 02:30 Sputum Induced Gram Stain Pending Resulted 08/28/17 02:30 Sputum Culture - Preliminary Gram Negative Bacillus 1 Staphylococcus Aureus Resulted 08/28/17 03:14 Urine,Clean Catch Urine Culture - Preliminary Gram Negative Bacillus 1 Resulted 08/28/17 04:00 Rectum VRE Culture - Final Enterococcus Faecium - Vre Complete Current Medications Medications (Trade) Dose Ordered Sig/Zeke Route PRN Reason Start Time Stop Time Status Last Admin Dose Admin Acetaminophen (Tylenol) 650 mg Q4H PRN ORAL Mild Pain (Pain Scale 1-3) 08/28/17 08:00 09/27/17 07:59 08/28/17 10:49 Cefepime HCl 500 mg/Dextrose 55 ml @ 110 mls/hr Q24H IVPB 08/29/17 09:00 09/05/17 08:59 08/30/17 09:18 Dextrose (Dextrose 50%) STAT PRN IV Hypoglycemia 08/28/17 08:30 09/27/17 08:29 Dextrose/Sodium Chloride 1,000 ml @ 125 mls/hr Q8H IV 08/28/17 13:30 09/27/17 13:29 08/30/17 00:42 Famotidine (Pepcid) 20 mg DAILY GT 08/28/17 09:00 09/27/17 08:59 08/30/17 09:29 Insulin Aspart (NovoLOG) BEFORE MEALS AND HS SUBQ 08/28/17 11:30 09/27/17 11:29 Lactulose (Cephulac) 20 gm BID GT 08/28/17 09:00 09/27/17 08:59 08/30/17 09:17 Memantine (Namenda) 5 mg TWICE A DAY GT 08/28/17 09:00 09/27/17 08:59 08/30/17 09:30 Metronidazole (Flagyl) 500 mg Q8HR ORAL 08/28/17 22:00 09/04/17 21:59 08/30/17 05:44 Mirtazapine (Remeron) 7.5 mg BEDTIME GT 08/28/17 21:00 09/27/17 20:59 08/29/17 21:06 Multivitamins Therapeutic (Therapeutic Multivitamin) 1 ea DAILY ORAL 08/28/17 09:00 09/27/17 08:59 08/30/17 09:30 Tramadol HCl (Ultram) 50 mg Q4H PRN GT Moderate Pain (Pain Scale 4-6) 08/28/17 08:00 09/04/17 07:59 08/28/17 22:02 Kristen Araujo M.D. Aug 30, 2017 11:11
[2017-08-30 11:45] LABS: ANION GAP 13 mmol/L (5-15); BLOOD UREA NITROGEN 91 mg/dL (7-18); CALCIUM 9.1 MG/DL (8.5-10.1); CARBON DIOXIDE 22 MMOL/L (21-32); CHLORIDE 119 MMOL/L (98-107); CREATININE 1.6 MG/DL (0.55-1.30); POTASSIUM 3.3 MMOL/L (3.5-5.1); SODIUM 154 MMOL/L (136-145)
[2017-08-30 12:00] VITALS: BP 138/72
--- NOTE | 2017-08-30 13:00 | General Progress Note ---
Assessment/Plan Status: stable Assessment/Plan encephalopathy agitation dementia with behavioral disturbance -cont remeron -cont aricept Subjective Date patient seen: Aug 30, 2017 Neurologic/Psychiatric: Reports: anxiety, depressed Allergies: Coded Allergies: PENICILLINS (Verified Allergy, Unknown, 08/28/17) Objective Last 24 Hour Vital Signs Date Time Temp Pulse Resp B/P (MAP) Pulse Ox O2 Delivery O2 Flow Rate FiO2 08/30/17 08:00 113 08/30/17 08:00 97.9 100 20 146/72 93 Room Air 97.9 08/30/17 04:00 104 08/30/17 04:00 96.2 98 18 129/66 94 Room Air 96.2 08/30/17 00:00 103 08/30/17 00:00 96.4 89 18 118/71 99 Room Air 96.4 08/29/17 20:00 99 08/29/17 20:00 97.4 86 18 120/59 91 Room Air 97.4 08/29/17 16:00 97 08/29/17 16:00 97.3 95 18 124/69 90 Room Air 97.3 08/29/17 13:37 98.0 80 20 133/56 100 Room Air 98.0 08/29/17 13:26 80 20 130/76 100 Room Air 08/29/17 13:23 208.6 77 18 99 08/29/17 13:21 208.6 79 18 99 08/29/17 13:08 80 20 132/65 100 Simple Mask 8.0 08/29/17 13:03 98.1 80 20 134/64 99 Simple Mask 8.0 98.1 Intake and Output 08/29/17 08/30/17 19:00 07:00 Intake Total 1235 ml Balance 1235 ml Intake IV Total 1125 ml Tube Feeding 80 ml Other 30 ml # Bowel Movements 1 1 Laboratory Tests 08/30/17 10:45: Sodium Level 154H, Potassium Level 3.3L, Chloride Level 119H, Carbon Dioxide Level 22, Anion Gap 13, Blood Urea Nitrogen 91H, Creatinine 1.6H, Estimat Glomerular Filtration Rate , Glucose Level 137H, Calcium Level 9.1 Height (Feet): 5 Height (Inches): 7.00 Weight (Pounds): 77 Poppy Mercado M.D. Aug 30, 2017 13:00
[2017-08-30 16:00] VITALS: BP 144/66
--- NOTE | 2017-08-30 16:30 | Internal Med Progress Note ---
Subjective Date of Service: Aug 30, 2017 Physician Name Frost,Joelle Attending Physician Karl Villegas MD Current Medications Medications (Trade) Dose Ordered Sig/Zeke Route PRN Reason Start Time Stop Time Status Last Admin Dose Admin Acetaminophen (Tylenol) 650 mg Q4H PRN ORAL Mild Pain (Pain Scale 1-3) 08/28/17 08:00 09/27/17 07:59 08/28/17 10:49 Cefepime HCl 500 mg/Dextrose 55 ml @ 110 mls/hr Q24H IVPB 08/29/17 09:00 09/05/17 08:59 08/30/17 09:18 Dextrose (Dextrose 50%) STAT PRN IV Hypoglycemia 08/28/17 08:30 09/27/17 08:29 Dextrose/Sodium Chloride 1,000 ml @ 125 mls/hr Q8H IV 08/28/17 13:30 09/27/17 13:29 08/30/17 15:27 Famotidine (Pepcid) 20 mg DAILY GT 08/28/17 09:00 09/27/17 08:59 08/30/17 09:29 Insulin Aspart (NovoLOG) BEFORE MEALS AND HS SUBQ 08/28/17 11:30 09/27/17 11:29 Lactulose (Cephulac) 20 gm BID GT 08/28/17 09:00 09/27/17 08:59 08/30/17 09:17 Memantine (Namenda) 5 mg TWICE A DAY GT 08/28/17 09:00 09/27/17 08:59 08/30/17 09:30 Metronidazole (Flagyl) 500 mg Q8HR ORAL 08/28/17 22:00 09/04/17 21:59 08/30/17 15:20 Mirtazapine (Remeron) 7.5 mg BEDTIME GT 08/28/17 21:00 09/27/17 20:59 08/29/17 21:06 Multivitamins Therapeutic (Therapeutic Multivitamin) 1 ea DAILY ORAL 08/28/17 09:00 09/27/17 08:59 08/30/17 09:30 Tramadol HCl (Ultram) 50 mg Q4H PRN GT Moderate Pain (Pain Scale 4-6) 08/28/17 08:00 09/04/17 07:59 08/28/17 22:02 Allergies: Coded Allergies: PENICILLINS (Verified Allergy, Unknown, 08/28/17) ROS Limited/Unobtainable: No Constitutional: Reports: no symptoms HEENT: Reports: no symptoms Cardiovascular: Reports: no symptoms Respiratory: Reports: no symptoms Gastrointestinal/Abdominal: Reports: no symptoms Genitourinary: Reports: no symptoms Neurologic/Psychiatric: Reports: no symptoms Subjective 86 YO F admitted with rectal bleeding. Await endoscopy/colonoscopy today. Cover for Int Med-Dr Villegas Objective Last Vital Signs Date Time Temp Pulse Resp B/P (MAP) Pulse Ox O2 Delivery O2 Flow Rate FiO2 08/30/17 12:00 97.5 103 20 138/72 Room Air 97.5 08/30/17 08:00 93 08/29/17 13:08 8.0 Laboratory Tests Test 08/30/17 10:45 Sodium Level 154 MMOL/L (136-145) H Potassium Level 3.3 MMOL/L (3.5-5.1) L Chloride Level 119 MMOL/L (98-107) H Carbon Dioxide Level 22 MMOL/L (21-32) Anion Gap 13 mmol/L (5-15) Blood Urea Nitrogen 91 mg/dL (7-18) H Creatinine 1.6 MG/DL (0.55-1.30) H Estimat Glomerular Filtration Rate mL/min (>60) Glucose Level 137 MG/DL (74-106) H Calcium Level 9.1 MG/DL (8.5-10.1) Microbiology Date/Time Source Procedure Growth Status 08/28/17 03:00 Blood Blood Culture - Preliminary Gram Negative Bacillus 1 Resulted 08/28/17 02:45 Blood Blood Culture - Preliminary NO GROWTH AFTER 48 HOURS Resulted 08/28/17 04:00 Nasal Nares MRSA Culture - Final Staphylococcus Aureus - Mrsa Complete 08/28/17 02:30 Sputum Induced Gram Stain - Final Resulted 08/28/17 02:30 Sputum Culture - Preliminary Gram Negative Bacillus 1 Staphylococcus Aureus Resulted 08/28/17 03:14 Urine,Clean Catch Urine Culture - Final Escherichia Coli Complete 08/28/17 04:00 Rectum VRE Culture - Final Enterococcus Faecium - Vre Complete Intake and Output 08/29/17 08/30/17 19:00 07:00 Intake Total 1235 ml Balance 1235 ml Intake IV Total 1125 ml Tube Feeding 80 ml Other 30 ml # Bowel Movements 1 1 Objective General Appearance: WD/WN, no apparent distress, alert EENT: PERRL/EOMI, normal ENT inspection Neck: non-tender, normal alignment, supple Cardiovascular: normal peripheral pulses, normal rate, regular rhythm, no gallop/murmur, no JVD Respiratory/Chest: chest wall non-tender, lungs clear, normal breath sounds, no respiratory distress, no accessory muscle use Abdomen: soft, no organomegaly, no mass, decreased bowel sounds, tender Extremities: normal range of motion, non-tender Neurologic: hotel controller II-XII grossly normal, no motor/sensory deficits Skin: normal pigmentation, warm/dry Assessment/Plan Problem List: (1) Alzheimer's dementia Assessment & Plan: Continue namenda (2) GERD (gastroesophageal reflux disease) Assessment & Plan: Continue pepcid (3) Dysphagia (4) HTN (hypertension) Assessment & Plan: Continue hydralazine (5) Major depression (6) Renal failure (7) Rectal bleed Assessment & Plan: Await endoscopy and colonoscopy today-see GI note (8) UTI (urinary tract infection) Assessment & Plan: E. Coli-see ID consult. Continue cefepime. (9) Sepsis Assessment & Plan: Gram neg real. Await ID and sensitivity. Cont cefepime and flagyl per ID (10) Anemia Status: not improved JOELLE FROST Aug 30, 2017 16:30
[2017-08-30 20:00] VITALS: BP 112/59
--- NOTE | 2017-08-30 20:52 | Nephrology Progress Note ---
Assessment/Plan Assessment 1. Acute renal failure. 2. Malnutrition 3. Urinary tract infection. 4. hypernatremia 5. Hypotension. 6. hypokalemia Plan plan replace k change ivf monitoring renal function avoid NSAID replace electrolyte as need Subjective ROS Limited/Unobtainable: Yes Constitutional: Reports: no symptoms HEENT: Reports: no symptoms Genitourinary: Reports: no symptoms Neurologic/Psychiatric: Reports: no symptoms Subjective no acute events over night Objective Objective Last 24 Hour Vital Signs Date Time Temp Pulse Resp B/P (MAP) Pulse Ox O2 Delivery O2 Flow Rate FiO2 08/30/17 16:00 97.2 107 20 144/66 94 Room Air 97.2 08/30/17 16:00 112 08/30/17 12:00 97.5 103 20 138/72 Room Air 97.5 08/30/17 12:00 111 08/30/17 08:00 113 08/30/17 08:00 97.9 100 20 146/72 93 Room Air 97.9 08/30/17 04:00 104 08/30/17 04:00 96.2 98 18 129/66 94 Room Air 96.2 08/30/17 00:00 103 08/30/17 00:00 96.4 89 18 118/71 99 Room Air 96.4 Intake and Output 08/29/17 08/30/17 19:00 07:00 Intake Total 1235 ml Balance 1235 ml Intake IV Total 1125 ml Tube Feeding 80 ml Other 30 ml # Bowel Movements 1 1 Laboratory Tests 08/30/17 10:45: Sodium Level 154H, Potassium Level 3.3L, Chloride Level 119H, Carbon Dioxide Level 22, Anion Gap 13, Blood Urea Nitrogen 91H, Creatinine 1.6H, Estimat Glomerular Filtration Rate , Glucose Level 137H, Calcium Level 9.1 Height (Feet): 5 Height (Inches): 7.00 Weight (Pounds): 77 Objective GENERAL: The patient is a chronically ill, malnourished female, in no acute distress. HEAD AND NECK: Bitemporal wasting. Extraocular movement intact. Pupils are reactive to light and accommodation. Sclera is pink. Dry mucous membranes. LUNGS: Clear to auscultation. CARDIAC: Regular rate and rhythm. S1 and S2. No murmur. No rub. ABDOMEN: Soft, nontender. G-tube is in place. EXTREMITIES: No edema, no clubbing, no cyanosis. SIMONE JACOBO Aug 30, 2017 20:52
[2017-08-30] MEDS: D5W w/KCl 20mEq 1,000 ML IV SCH (21:25)
--- NOTE | 2017-08-30 22:45 | General Progress Note ---
Assessment/Plan Assessment/Plan Assessment - GI Bleed - cecal ulcer - Cachexia - OBS - Dysphagia - Hypernatremia - Azotemia Recommendations - f/u path - Increase free water - Follow Na and Cr - IV hydration - serial CBC - Transfuse PRN Subjective Allergies: Coded Allergies: PENICILLINS (Verified Allergy, Unknown, 08/28/17) Subjective Calm tolerating TF s/p EGD/Colon yesterday showin. Mild gastritis, status post biopsy. 2. Colonic diverticulosis. 3. Cecal ulcer, status post biopsy. Objective Last 24 Hour Vital Signs Date Time Temp Pulse Resp B/P (MAP) Pulse Ox O2 Delivery O2 Flow Rate FiO2 08/30/17 16:00 97.2 107 20 144/66 94 Room Air 97.2 08/30/17 16:00 112 08/30/17 12:00 97.5 103 20 138/72 Room Air 97.5 08/30/17 12:00 111 08/30/17 08:00 113 08/30/17 08:00 97.9 100 20 146/72 93 Room Air 97.9 08/30/17 04:00 104 08/30/17 04:00 96.2 98 18 129/66 94 Room Air 96.2 08/30/17 00:00 103 08/30/17 00:00 96.4 89 18 118/71 99 Room Air 96.4 Intake and Output 08/29/17 08/30/17 19:00 07:00 Intake Total 1235 ml Balance 1235 ml Intake IV Total 1125 ml Tube Feeding 80 ml Other 30 ml # Bowel Movements 1 1 Laboratory Tests 08/30/17 10:45: Sodium Level 154H, Potassium Level 3.3L, Chloride Level 119H, Carbon Dioxide Level 22, Anion Gap 13, Blood Urea Nitrogen 91H, Creatinine 1.6H, Estimat Glomerular Filtration Rate , Glucose Level 137H, Calcium Level 9.1 Height (Feet): 5 Height (Inches): 7.00 Weight (Pounds): 77 Objective Cachexic AA woman NCAT Supple CTA RRR Abd Soft ND NT, (+) GT ext no edema Neuro OBS DELFINAVERO Aug 30, 2017 22:45
[2017-08-31] VITALS: BP 129/79
[2017-08-31 04:00] VITALS: BP 138/79
[2017-08-31] MEDS: NovoLOG Insulin Flexpen SUBQ SCH ×4 (06:30→21:00)
[2017-08-31] MEDS: metroNIDAZOLE 500mg tab ORAL SCH (06:40)
[2017-08-31] MEDS: D5W w/KCl 20mEq 1,000 ML IV SCH ×2 (06:40→16:30)
[2017-08-31 08:00] VITALS: BP 142/73
[2017-08-31 09:13] LABS: HEMATOCRIT 35.4 % (37.0-47.0); HEMOGLOBIN 11.7 G/DL (12.0-16.0); MEAN CORPUSCULAR VOLUME 93 FL (80-99); PLATELET COUNT 591 K/UL (150-450); RED BLOOD COUNT 3.83 M/UL (4.20-5.40); RED CELL DISTRIBUTION WIDTH 15.1 % (11.6-14.8); WHITE BLOOD COUNT 21.7 K/UL (4.8-10.8)
[2017-08-31 09:24] LABS: ALANINE AMINOTRANSFERASE 21 U/L (12-78); ALBUMIN 1.4 G/DL (3.4-5.0); ALBUMIN/GLOBULIN RATIO 0.2 (1.0-2.7); ALKALINE PHOSPHATASE 100 U/L (46-116); ANION GAP 10 mmol/L (5-15); ASPARTATE AMINO TRANSFERASE 21 U/L (15-37); BILIRUBIN,TOTAL 0.4 MG/DL (0.2-1.0); BLOOD UREA NITROGEN 77 mg/dL (7-18); CALCIUM 8.4 MG/DL (8.5-10.1); CARBON DIOXIDE 23 MMOL/L (21-32); CHLORIDE 118 MMOL/L (98-107); CREATININE 1.5 MG/DL (0.55-1.30); PHOSPHORUS 2.9 MG/DL (2.5-4.9); POTASSIUM 3.6 MMOL/L (3.5-5.1); SODIUM 151 MMOL/L (136-145)
[2017-08-31] MEDS: Multivitamin w/Minerals tab ORAL SCH (10:01)
[2017-08-31] MEDS: Lactulose 20gm/30ml UDC GT SCH ×2 (10:01→19:03)
[2017-08-31] MEDS: Memantine 5 MG TAB GT SCH ×2 (10:01→19:03)
[2017-08-31] MEDS: Cefepime HCl 500 MG in D5W 55 ML IVPB SCH (10:02)
--- NOTE | 2017-08-31 10:53 | Internal Med Progress Note ---
Subjective Date of Service: Aug 31, 2017 Physician Name LimJoelle head Attending Physician Karl Villegas MD Current Medications Medications (Trade) Dose Ordered Sig/Zeke Route PRN Reason Start Time Stop Time Status Last Admin Dose Admin Acetaminophen (Tylenol) 650 mg Q4H PRN ORAL Mild Pain (Pain Scale 1-3) 08/28/17 08:00 09/27/17 07:59 08/28/17 10:49 Cefepime HCl 500 mg/Dextrose 55 ml @ 110 mls/hr Q24H IVPB 08/29/17 09:00 09/05/17 08:59 08/31/17 10:02 Dextrose (Dextrose 50%) STAT PRN IV Hypoglycemia 08/28/17 08:30 09/27/17 08:29 Dextrose/ Electrolytes 1,000 ml @ 100 mls/hr Q10H IV 08/30/17 20:30 09/29/17 20:29 08/31/17 06:40 Famotidine (Pepcid) 20 mg DAILY GT 08/28/17 09:00 09/27/17 08:59 08/31/17 10:01 Insulin Aspart (NovoLOG) BEFORE MEALS AND HS SUBQ 08/28/17 11:30 09/27/17 11:29 Lactulose (Cephulac) 20 gm BID GT 08/28/17 09:00 09/27/17 08:59 08/31/17 10:01 Memantine (Namenda) 5 mg TWICE A DAY GT 08/28/17 09:00 09/27/17 08:59 08/31/17 10:01 Metronidazole (Flagyl) 500 mg Q8HR ORAL 08/28/17 22:00 09/04/17 21:59 08/31/17 06:40 Mirtazapine (Remeron) 7.5 mg BEDTIME GT 08/28/17 21:00 09/27/17 20:59 08/30/17 21:25 Multivitamins Therapeutic (Therapeutic Multivitamin) 1 ea DAILY ORAL 08/28/17 09:00 09/27/17 08:59 08/31/17 10:01 Tramadol HCl (Ultram) 50 mg Q4H PRN GT Moderate Pain (Pain Scale 4-6) 08/28/17 08:00 09/04/17 07:59 08/28/17 22:02 Allergies: Coded Allergies: PENICILLINS (Verified Allergy, Unknown, 08/28/17) ROS Limited/Unobtainable: No Constitutional: Reports: no symptoms HEENT: Reports: no symptoms Cardiovascular: Reports: no symptoms Respiratory: Reports: no symptoms Gastrointestinal/Abdominal: Reports: rectal bleeding Genitourinary: Reports: no symptoms Neurologic/Psychiatric: Reports: no symptoms Subjective 86 YO F admitted with rectal bleeding. Now UTI and sepsis. S/P endoscopy/ colonoscopy 08/29/17. Cover for Int Cristian-Dr Villegas Objective Last Vital Signs Date Time Temp Pulse Resp B/P (MAP) Pulse Ox O2 Delivery O2 Flow Rate FiO2 08/31/17 08:00 97.2 106 20 142/73 99 Room Air 97.2 08/29/17 13:08 8.0 Laboratory Tests Test 08/31/17 08:45 White Blood Count 21.7 K/UL (4.8-10.8) H Red Blood Count 3.83 M/UL (4.20-5.40) L Hemoglobin 11.7 G/DL (12.0-16.0) L Hematocrit 35.4 % (37.0-47.0) L Mean Corpuscular Volume 93 FL (80-99) Mean Corpuscular Hemoglobin 30.6 PG (27.0-31.0) Mean Corpuscular Hemoglobin Concent 33.0 G/DL (32.0-36.0) Red Cell Distribution Width 15.1 % (11.6-14.8) H Platelet Count 591 K/UL (150-450) H Mean Platelet Volume 5.4 FL (6.5-10.1) L Neutrophils (%) (Auto) % (45.0-75.0) Lymphocytes (%) (Auto) % (20.0-45.0) Monocytes (%) (Auto) % (1.0-10.0) Eosinophils (%) (Auto) % (0.0-3.0) Basophils (%) (Auto) % (0.0-2.0) Differential Total Cells Counted 100 Neutrophils % (Manual) 90 % (45-75) H Lymphocytes % (Manual) 7 % (20-45) L Monocytes % (Manual) 3 % (1-10) Eosinophils % (Manual) 0 % (0-3) Basophils % (Manual) 0 % (0-2) Band Neutrophils 0 % (0-8) Platelet Estimate Increased H Platelet Morphology Normal Anisocytosis 1+ Sodium Level 151 MMOL/L (136-145) H Potassium Level 3.6 MMOL/L (3.5-5.1) Chloride Level 118 MMOL/L (98-107) H Carbon Dioxide Level 23 MMOL/L (21-32) Anion Gap 10 mmol/L (5-15) Blood Urea Nitrogen 77 mg/dL (7-18) H Creatinine 1.5 MG/DL (0.55-1.30) H Estimat Glomerular Filtration Rate mL/min (>60) Glucose Level 133 MG/DL (74-106) H Calcium Level 8.4 MG/DL (8.5-10.1) L Phosphorus Level 2.9 MG/DL (2.5-4.9) Magnesium Level 1.8 MG/DL (1.8-2.4) Total Bilirubin 0.4 MG/DL (0.2-1.0) Aspartate Amino Transf (AST/SGOT) 21 U/L (15-37) Alanine Aminotransferase (ALT/SGPT) 21 U/L (12-78) Alkaline Phosphatase 100 U/L (46-116) Total Protein 7.1 G/DL (6.4-8.2) Albumin 1.4 G/DL (3.4-5.0) L Globulin 5.7 g/dL Albumin/Globulin Ratio 0.2 (1.0-2.7) L Intake and Output 08/30/17 08/31/17 19:00 07:00 Intake Total 900 ml Output Total 1000 ml 500 ml Balance -1000 ml 400 ml Intake IV Total 900 ml Output Urine Total 1000 ml 500 ml # Bowel Movements 3 4 Objective General Appearance: WD/WN, no apparent distress, alert EENT: PERRL/EOMI, normal ENT inspection Neck: non-tender, normal alignment, supple Cardiovascular: normal peripheral pulses, normal rate, regular rhythm, no gallop/murmur, no JVD Respiratory/Chest: chest wall non-tender, lungs clear, normal breath sounds, no respiratory distress, no accessory muscle use Abdomen: soft, no organomegaly, no mass, decreased bowel sounds, tender Extremities: normal range of motion, non-tender Neurologic: patch setter II-XII grossly normal, no motor/sensory deficits Skin: normal pigmentation, warm/dry Assessment/Plan Problem List: (1) Alzheimer's dementia Assessment & Plan: Continue namenda (2) GERD (gastroesophageal reflux disease) Assessment & Plan: Continue pepcid (3) Dysphagia (4) HTN (hypertension) Assessment & Plan: Continue hydralazine (5) Major depression (6) Renal failure (7) Rectal bleed Assessment & Plan: Await endoscopy and colonoscopy today-see GI note (8) UTI (urinary tract infection) Assessment & Plan: E. Coli-see ID consult. Continue cefepime. (9) Sepsis Assessment & Plan: E. Coli. Cont cefepime and flagyl per ID (10) Anemia Status: not improved JOELLE LIM Aug 31, 2017 10:53
--- NOTE | 2017-08-31 11:01 | Diagnostic Imaging Report ---
Indication: Shortness of breath Technique: One view of the chest Comparison: 08/28/2017 Findings: Patient is rotated to the right although less so than on the prior exam. The lungs and pleural spaces are currently clear. The heart size is normal. Previously demonstrated interstitial prominence is decreased Impression: No definite acute process
--- NOTE | 2017-08-31 11:43 | Infectious Diseases Prog Note ---
Assessment/Plan Assessment/Plan Assessment: Sepsis, SP -2ry to UTI c/w bacteremia Leukocytosis, improving- probably combination of reactive to GIB and infection; overall improved -afebrile -u/a wbc tntc, nit -, leuk +; ucx >100K E.coli ( R amp, otherwise S) -08/28 BCx 1/ E.coli ( R amp, otherwise S); 08/30 Bcx p Doubt PNA -CXR 08/31: no acute process -CXR: Examination significantly limited by patient contraction and positioning. Perihilar interstitial prominence and mild edema or interstitial infiltrates not excluded. -sp cx PsA (bryant S), MRSA (S Vanco, bactrim; R tetracycline); colonizers GIB- 2ry to colonic ulcer -s/p EGD/[facility] 08/29: 1. Mild gastritis, status post biopsy. 2. Colonic diverticulosis. 3. Cecal ulcer, status post biopsy. GERD malnutrition/dysphagia s/p GT placement ~6 months ago CKD MDD Dementia non verbal HTN care home resident HLD Plan: -Switch Cefepime #09/17 to IV Ceftriaxone 2g daily for UTI and bacteremia; upon discharge can be transitioned to PO Cipro to complete course -d/c Flagyl #4 -if increased O2 requirements and new CXR infiltrates, will treat MRSA and PsA in sputum -08/29 SP IV Vancomycin #2 -f/u repeat 2 sets of Bcx -f/u cx -Monitor CBC/BMP, temperatures; trend WBC -aspiration precautions Thank you for this consultation. Will continue to follow along with you. Discussed with RN. Subjective Allergies: Coded Allergies: PENICILLINS (Verified Allergy, Unknown, 08/28/17) Subjective afebrile leukocytosis slightly increased but overall improved awaiting repeat Bcx Objective Vital Signs Last 24 Hour Vital Signs Date Time Temp Pulse Resp B/P (MAP) Pulse Ox O2 Delivery O2 Flow Rate FiO2 08/31/17 08:00 97.2 106 20 142/73 99 Room Air 97.2 08/31/17 04:00 109 08/31/17 04:00 97.0 104 18 138/79 94 Room Air 97.0 08/31/17 00:00 107 08/31/17 00:00 97.0 100 19 129/79 95 Room Air 97.0 08/30/17 20:00 96.6 103 18 112/59 92 Room Air 96.6 08/30/17 20:00 105 08/30/17 16:00 97.2 107 20 144/66 94 Room Air 97.2 08/30/17 16:00 112 08/30/17 12:00 97.5 103 20 138/72 Room Air 97.5 08/30/17 12:00 111 Height (Feet): 5 Height (Inches): 7.00 Weight (Pounds): 77 Objective GENERAL: Debilitated, thin, woman, seen in her room with the nurse at bedside. HEENT: Normocephalic. There was temporal wasting. NECK: Supple. CHEST: Revealed coarse breath sounds. CARDIOVASCULAR: Revealed a regular rate. ABDOMEN: Soft with gastrostomy tube in good position. EXTREMITIES: Revealed no edema. RECTAL: From external view showed dark red stools. Laboratory Tests Test 08/31/17 08:45 White Blood Count 21.7 K/UL (4.8-10.8) H Red Blood Count 3.83 M/UL (4.20-5.40) L Hemoglobin 11.7 G/DL (12.0-16.0) L Hematocrit 35.4 % (37.0-47.0) L Mean Corpuscular Volume 93 FL (80-99) Mean Corpuscular Hemoglobin 30.6 PG (27.0-31.0) Mean Corpuscular Hemoglobin Concent 33.0 G/DL (32.0-36.0) Red Cell Distribution Width 15.1 % (11.6-14.8) H Platelet Count 591 K/UL (150-450) H Mean Platelet Volume 5.4 FL (6.5-10.1) L Neutrophils (%) (Auto) % (45.0-75.0) Lymphocytes (%) (Auto) % (20.0-45.0) Monocytes (%) (Auto) % (1.0-10.0) Eosinophils (%) (Auto) % (0.0-3.0) Basophils (%) (Auto) % (0.0-2.0) Differential Total Cells Counted 100 Neutrophils % (Manual) 90 % (45-75) H Lymphocytes % (Manual) 7 % (20-45) L Monocytes % (Manual) 3 % (1-10) Eosinophils % (Manual) 0 % (0-3) Basophils % (Manual) 0 % (0-2) Band Neutrophils 0 % (0-8) Platelet Estimate Increased H Platelet Morphology Normal Anisocytosis 1+ Sodium Level 151 MMOL/L (136-145) H Potassium Level 3.6 MMOL/L (3.5-5.1) Chloride Level 118 MMOL/L (98-107) H Carbon Dioxide Level 23 MMOL/L (21-32) Anion Gap 10 mmol/L (5-15) Blood Urea Nitrogen 77 mg/dL (7-18) H Creatinine 1.5 MG/DL (0.55-1.30) H Estimat Glomerular Filtration Rate mL/min (>60) Glucose Level 133 MG/DL (74-106) H Calcium Level 8.4 MG/DL (8.5-10.1) L Phosphorus Level 2.9 MG/DL (2.5-4.9) Magnesium Level 1.8 MG/DL (1.8-2.4) Total Bilirubin 0.4 MG/DL (0.2-1.0) Aspartate Amino Transf (AST/SGOT) 21 U/L (15-37) Alanine Aminotransferase (ALT/SGPT) 21 U/L (12-78) Alkaline Phosphatase 100 U/L (46-116) Total Protein 7.1 G/DL (6.4-8.2) Albumin 1.4 G/DL (3.4-5.0) L Globulin 5.7 g/dL Albumin/Globulin Ratio 0.2 (1.0-2.7) L Current Medications Medications (Trade) Dose Ordered Sig/Zeke Route PRN Reason Start Time Stop Time Status Last Admin Dose Admin Acetaminophen (Tylenol) 650 mg Q4H PRN ORAL Mild Pain (Pain Scale 1-3) 08/28/17 08:00 09/27/17 07:59 08/28/17 10:49 Cefepime HCl 500 mg/Dextrose 55 ml @ 110 mls/hr Q24H IVPB 08/29/17 09:00 09/05/17 08:59 08/31/17 10:02 Dextrose (Dextrose 50%) STAT PRN IV Hypoglycemia 08/28/17 08:30 09/27/17 08:29 Dextrose/ Electrolytes 1,000 ml @ 100 mls/hr Q10H IV 08/30/17 20:30 09/29/17 20:29 08/31/17 06:40 Famotidine (Pepcid) 20 mg DAILY GT 08/28/17 09:00 09/27/17 08:59 08/31/17 10:01 Insulin Aspart (NovoLOG) BEFORE MEALS AND HS SUBQ 08/28/17 11:30 09/27/17 11:29 Lactulose (Cephulac) 20 gm BID GT 08/28/17 09:00 09/27/17 08:59 08/31/17 10:01 Memantine (Namenda) 5 mg TWICE A DAY GT 08/28/17 09:00 09/27/17 08:59 08/31/17 10:01 Metronidazole (Flagyl) 500 mg Q8HR ORAL 08/28/17 22:00 09/04/17 21:59 08/31/17 06:40 Mirtazapine (Remeron) 7.5 mg BEDTIME GT 08/28/17 21:00 09/27/17 20:59 08/30/17 21:25 Multivitamins Therapeutic (Therapeutic Multivitamin) 1 ea DAILY ORAL 08/28/17 09:00 09/27/17 08:59 08/31/17 10:01 Tramadol HCl (Ultram) 50 mg Q4H PRN GT Moderate Pain (Pain Scale 4-6) 08/28/17 08:00 09/04/17 07:59 08/28/17 22:02 Kristen Araujo M.D. Aug 31, 2017 11:42
--- NOTE | 2017-08-31 11:47 | General Progress Note ---
Assessment/Plan Assessment/Plan encephalopathy agitation dementia with behavioral disturbance -cont remeron -cont aricept Subjective Neurologic/Psychiatric: Reports: anxiety, depressed Allergies: Coded Allergies: PENICILLINS (Verified Allergy, Unknown, 08/28/17) Objective Last 24 Hour Vital Signs Date Time Temp Pulse Resp B/P (MAP) Pulse Ox O2 Delivery O2 Flow Rate FiO2 08/31/17 08:00 97.2 106 20 142/73 99 Room Air 97.2 08/31/17 04:00 109 08/31/17 04:00 97.0 104 18 138/79 94 Room Air 97.0 08/31/17 00:00 107 08/31/17 00:00 97.0 100 19 129/79 95 Room Air 97.0 08/30/17 20:00 96.6 103 18 112/59 92 Room Air 96.6 08/30/17 20:00 105 08/30/17 16:00 97.2 107 20 144/66 94 Room Air 97.2 08/30/17 16:00 112 08/30/17 12:00 97.5 103 20 138/72 Room Air 97.5 08/30/17 12:00 111 Intake and Output 08/30/17 08/31/17 19:00 07:00 Intake Total 900 ml Output Total 1000 ml 500 ml Balance -1000 ml 400 ml Intake IV Total 900 ml Output Urine Total 1000 ml 500 ml # Bowel Movements 3 4 Laboratory Tests 08/31/17 08:45: White Blood Count 21.7H, Red Blood Count 3.83L, Hemoglobin 11.7L, Hematocrit 35.4L, Mean Corpuscular Volume 93, Mean Corpuscular Hemoglobin 30.6, Mean Corpuscular Hemoglobin Concent 33.0, Red Cell Distribution Width 15.1H, Platelet Count 591H, Mean Platelet Volume 5.4L, Neutrophils (%) (Auto) , Lymphocytes (%) (Auto) , Monocytes (%) (Auto) , Eosinophils (%) (Auto) , Basophils (%) (Auto) , Differential Total Cells Counted 100, Neutrophils % ( Manual) 90H, Lymphocytes % (Manual) 7L, Monocytes % (Manual) 3, Eosinophils % ( Manual) 0, Basophils % (Manual) 0, Band Neutrophils 0, Platelet Estimate IncreasedH, Platelet Morphology Normal, Anisocytosis 1+, Sodium Level 151H, Potassium Level 3.6, Chloride Level 118H, Carbon Dioxide Level 23, Anion Gap 10 , Blood Urea Nitrogen 77H, Creatinine 1.5H, Estimat Glomerular Filtration Rate , Glucose Level 133H, Calcium Level 8.4L, Phosphorus Level 2.9, Magnesium Level 1.8, Total Bilirubin 0.4, Aspartate Amino Transf (AST/SGOT) 21, Alanine Aminotransferase (ALT/SGPT) 21, Alkaline Phosphatase 100, Total Protein 7.1, Albumin 1.4L, Globulin 5.7, Albumin/Globulin Ratio 0.2L Height (Feet): 5 Height (Inches): 7.00 Weight (Pounds): 77 General Appearance: no apparent distress, alert, cachetic Poppy Mercado M.D. Aug 31, 2017 11:47
[2017-08-31 16:00] VITALS: BP 130/72
[2017-08-31 20:00] VITALS: BP 152/110
--- NOTE | 2017-08-31 21:26 | General Progress Note ---
Assessment/Plan Assessment/Plan Assessment - GI Bleed - cecal ulcer - Cachexia - OBS - Dysphagia - Hypernatremia - Azotemia Recommendations - f/u path - Increase free water - Follow Na and Cr - IV hydration - serial CBC - Transfuse PRN Subjective Allergies: Coded Allergies: PENICILLINS (Verified Allergy, Unknown, 08/28/17) Subjective Calm tolerating TF pathology still pending Objective Last 24 Hour Vital Signs Date Time Temp Pulse Resp B/P (MAP) Pulse Ox O2 Delivery O2 Flow Rate FiO2 08/31/17 20:00 97.0 66 23 152/110 97 Room Air 97.0 08/31/17 16:00 123 08/31/17 16:00 97.5 121 20 130/72 99 Room Air 97.5 08/31/17 12:00 109 08/31/17 08:00 97.2 106 20 142/73 99 Room Air 97.2 08/31/17 08:00 108 08/31/17 04:00 109 08/31/17 04:00 97.0 104 18 138/79 94 Room Air 97.0 08/31/17 00:00 107 08/31/17 00:00 97.0 100 19 129/79 95 Room Air 97.0 Intake and Output 08/30/17 08/31/17 19:00 07:00 Intake Total 900 ml Output Total 1000 ml 500 ml Balance -1000 ml 400 ml Intake IV Total 900 ml Output Urine Total 1000 ml 500 ml # Bowel Movements 3 4 Laboratory Tests 08/31/17 08:45: White Blood Count 21.7H, Red Blood Count 3.83L, Hemoglobin 11.7L, Hematocrit 35.4L, Mean Corpuscular Volume 93, Mean Corpuscular Hemoglobin 30.6, Mean Corpuscular Hemoglobin Concent 33.0, Red Cell Distribution Width 15.1H, Platelet Count 591H, Mean Platelet Volume 5.4L, Neutrophils (%) (Auto) , Lymphocytes (%) (Auto) , Monocytes (%) (Auto) , Eosinophils (%) (Auto) , Basophils (%) (Auto) , Differential Total Cells Counted 100, Neutrophils % ( Manual) 90H, Lymphocytes % (Manual) 7L, Monocytes % (Manual) 3, Eosinophils % ( Manual) 0, Basophils % (Manual) 0, Band Neutrophils 0, Platelet Estimate IncreasedH, Platelet Morphology Normal, Anisocytosis 1+, Sodium Level 151H, Potassium Level 3.6, Chloride Level 118H, Carbon Dioxide Level 23, Anion Gap 10 , Blood Urea Nitrogen 77H, Creatinine 1.5H, Estimat Glomerular Filtration Rate , Glucose Level 133H, Calcium Level 8.4L, Phosphorus Level 2.9, Magnesium Level 1.8, Total Bilirubin 0.4, Aspartate Amino Transf (AST/SGOT) 21, Alanine Aminotransferase (ALT/SGPT) 21, Alkaline Phosphatase 100, Total Protein 7.1, Albumin 1.4L, Globulin 5.7, Albumin/Globulin Ratio 0.2L Height (Feet): 5 Height (Inches): 7.00 Weight (Pounds): 77 Objective Cachexic AA woman NCAT Supple CTA RRR Abd Soft ND NT, (+) GT ext no edema Neuro OBS VERO MATHIS Aug 31, 2017 21:26
[2017-08-31] MEDS: traMADol 50mg tab GT PRN (22:46)
[2017-09-01] VITALS: BP 113/66
[2017-09-01] MEDS: D5W w/KCl 20mEq 1,000 ML IV SCH ×2 (02:24→13:44)
[2017-09-01 04:00] VITALS: BP 138/79
[2017-09-01] MEDS: NovoLOG Insulin Flexpen SUBQ SCH ×2 (05:58→11:30)
[2017-09-01 07:12] LABS: ANION GAP 9 mmol/L (5-15); BLOOD UREA NITROGEN 71 mg/dL (7-18); CALCIUM 8.4 MG/DL (8.5-10.1); CARBON DIOXIDE 23 MMOL/L (21-32); CHLORIDE 121 MMOL/L (98-107); CREATININE 1.4 MG/DL (0.55-1.30); POTASSIUM 4.2 MMOL/L (3.5-5.1); SODIUM 153 MMOL/L (136-145)
[2017-09-01 07:37] LABS: HEMATOCRIT 33.2 % (37.0-47.0); HEMOGLOBIN 11.2 G/DL (12.0-16.0); MEAN CORPUSCULAR VOLUME 92 FL (80-99); PLATELET COUNT 536 K/UL (150-450); RED BLOOD COUNT 3.59 M/UL (4.20-5.40); RED CELL DISTRIBUTION WIDTH 15.5 % (11.6-14.8)
[2017-09-01 07:51] LABS: WHITE BLOOD COUNT 24.1 K/UL (4.8-10.8)
[2017-09-01 08:00] VITALS: BP 102/62
[2017-09-01] MEDS: Memantine 5 MG TAB GT SCH (08:34)
[2017-09-01] MEDS: Lactulose 20gm/30ml UDC GT SCH (08:34)
[2017-09-01] MEDS: Multivitamin w/Minerals tab ORAL SCH (08:35)
[2017-09-01 12:00] VITALS: BP 111/58
--- NOTE | 2017-09-01 13:17 | General Progress Note ---
Assessment/Plan Status: stable Assessment/Plan encephalopathy agitation dementia with behavioral disturbance -cont remeron -cont aricept Subjective Neurologic/Psychiatric: Reports: anxiety, depressed Allergies: Coded Allergies: PENICILLINS (Verified Allergy, Unknown, 08/28/17) Subjective low appetite calm Objective Last 24 Hour Vital Signs Date Time Temp Pulse Resp B/P (MAP) Pulse Ox O2 Delivery O2 Flow Rate FiO2 09/01/17 08:00 97.5 109 18 102/62 96 Room Air 97.5 09/01/17 08:00 108 09/01/17 04:00 97.0 104 18 138/79 94 Room Air 97.0 09/01/17 04:00 117 09/01/17 00:00 97.0 125 23 113/66 97 Room Air 97.0 09/01/17 00:00 128 08/31/17 23:45 97.0 08/31/17 22:46 97.0 08/31/17 20:00 97.0 66 23 152/110 97 Room Air 97.0 08/31/17 20:00 119 08/31/17 16:00 123 08/31/17 16:00 97.5 121 20 130/72 99 Room Air 97.5 Intake and Output 08/31/17 09/01/17 19:00 07:00 Intake Total 190 ml Output Total 1000 ml 800 ml Balance -1000 ml -610 ml Intake Free Water 150 ml Tube Feeding 40 ml Output Urine Total 1000 ml 800 ml # Bowel Movements 2 3 Laboratory Tests 09/01/17 06:25: White Blood Count 24.1*H, Red Blood Count 3.59L, Hemoglobin 11.2L, Hematocrit 33.2L, Mean Corpuscular Volume 92, Mean Corpuscular Hemoglobin 31.3H, Mean Corpuscular Hemoglobin Concent 33.9, Red Cell Distribution Width 15.5H, Platelet Count 536H, Mean Platelet Volume 5.2L, Neutrophils (%) (Auto) , Lymphocytes (%) (Auto) , Monocytes (%) (Auto) , Eosinophils (%) (Auto) , Basophils (%) (Auto) , Differential Total Cells Counted 100, Neutrophils % ( Manual) 83H, Lymphocytes % (Manual) 11L, Monocytes % (Manual) 6, Eosinophils % ( Manual) 0, Basophils % (Manual) 0, Band Neutrophils 0, Platelet Estimate IncreasedH, Platelet Morphology Normal, Anisocytosis 1+, Sodium Level 153H, Potassium Level 4.2, Chloride Level 121H, Carbon Dioxide Level 23, Anion Gap 9, Blood Urea Nitrogen 71H, Creatinine 1.4H, Estimat Glomerular Filtration Rate , Glucose Level 157H, Calcium Level 8.4L Height (Feet): 5 Height (Inches): 7.00 Weight (Pounds): 77 General Appearance: no apparent distress, alert, confused Poppy Mercado M.D. Sep 01, 2017 13:17
[2017-09-01] MEDS ORDERED: cefTRIAXone 2 GM in D5W 55 ML IVPB SCH (14:00)
--- NOTE | 2017-09-01 14:48 | Infectious Diseases Prog Note ---
Assessment/Plan Assessment/Plan Assessment: Sepsis, SP -2ry to UTI c/w bacteremia Leukocytosis,- probably combination of reactive to GIB and infection; previously improved, now worsening- r/o obstruction, recurrent bacteremia, MDRO , PNA -afebrile -u/a wbc tntc, nit -, leuk +; ucx >100K E.coli ( R amp, otherwise S) -08/28 BCx 1/ E.coli ( R amp, otherwise S); 08/30 Bcx not collected Doubt PNA, no cough, at RA -CXR 08/31: no acute process -CXR: Examination significantly limited by patient contraction and positioning. Perihilar interstitial prominence and mild edema or interstitial infiltrates not excluded. -sp cx PsA (bryant S), MRSA (S Vanco, bactrim; R tetracycline); colonizers GIB- 2ry to colonic ulcer -s/p EGD/[facility] 08/29: 1. Mild gastritis, status post biopsy. 2. Colonic diverticulosis. 3. Cecal ulcer, status post biopsy. GERD malnutrition/dysphagia s/p GT placement ~6 months ago CKD MDD Dementia non verbal HTN [facility] resident HLD Plan: -Continue IV Ceftriaxone 2g daily abx d#5 for UTI and bacteremia; upon discharge can be transitioned to PO Cipro to complete course -if increased O2 requirements and new CXR infiltrates, will treat MRSA and PsA in sputum -08/31 SP IV Cefepime #4, Flagyl #4 -08/29 SP IV Vancomycin #2 -2 sets of Bcx, u/a w/ -KUB -f/u cx -Monitor CBC/BMP, temperatures; trend WBC -aspiration precautions -CXR am Thank you for this consultation. Will continue to follow along with you. Discussed with RN. Subjective Allergies: Coded Allergies: PENICILLINS (Verified Allergy, Unknown, 08/28/17) Subjective afebrile leukocytosis increasing Bcx ordered on 08/30 not collected at RA feeding residuals Objective Vital Signs Last 24 Hour Vital Signs Date Time Temp Pulse Resp B/P (MAP) Pulse Ox O2 Delivery O2 Flow Rate FiO2 09/01/17 12:00 101 09/01/17 08:00 97.5 109 18 102/62 96 Room Air 97.5 09/01/17 08:00 108 09/01/17 04:00 97.0 104 18 138/79 94 Room Air 97.0 09/01/17 04:00 117 09/01/17 00:00 97.0 125 23 113/66 97 Room Air 97.0 09/01/17 00:00 128 08/31/17 23:45 97.0 08/31/17 22:46 97.0 08/31/17 20:00 97.0 66 23 152/110 97 Room Air 97.0 08/31/17 20:00 119 08/31/17 16:00 123 08/31/17 16:00 97.5 121 20 130/72 99 Room Air 97.5 Height (Feet): 5 Height (Inches): 7.00 Weight (Pounds): 77 Objective GENERAL: Debilitated, thin, woman, seen in her room with the nurse at bedside. HEENT: Normocephalic. There was temporal wasting. NECK: Supple. CHEST: Revealed coarse breath sounds. CARDIOVASCULAR: Revealed a regular rate. ABDOMEN: Soft with gastrostomy tube in good position. EXTREMITIES: Revealed no edema. RECTAL: From external view showed dark red stools. Laboratory Tests Test 09/01/17 06:25 White Blood Count 24.1 K/UL (4.8-10.8) *H Red Blood Count 3.59 M/UL (4.20-5.40) L Hemoglobin 11.2 G/DL (12.0-16.0) L Hematocrit 33.2 % (37.0-47.0) L Mean Corpuscular Volume 92 FL (80-99) Mean Corpuscular Hemoglobin 31.3 PG (27.0-31.0) H Mean Corpuscular Hemoglobin Concent 33.9 G/DL (32.0-36.0) Red Cell Distribution Width 15.5 % (11.6-14.8) H Platelet Count 536 K/UL (150-450) H Mean Platelet Volume 5.2 FL (6.5-10.1) L Neutrophils (%) (Auto) % (45.0-75.0) Lymphocytes (%) (Auto) % (20.0-45.0) Monocytes (%) (Auto) % (1.0-10.0) Eosinophils (%) (Auto) % (0.0-3.0) Basophils (%) (Auto) % (0.0-2.0) Differential Total Cells Counted 100 Neutrophils % (Manual) 83 % (45-75) H Lymphocytes % (Manual) 11 % (20-45) L Monocytes % (Manual) 6 % (1-10) Eosinophils % (Manual) 0 % (0-3) Basophils % (Manual) 0 % (0-2) Band Neutrophils 0 % (0-8) Platelet Estimate Increased H Platelet Morphology Normal Anisocytosis 1+ Sodium Level 153 MMOL/L (136-145) H Potassium Level 4.2 MMOL/L (3.5-5.1) Chloride Level 121 MMOL/L (98-107) H Carbon Dioxide Level 23 MMOL/L (21-32) Anion Gap 9 mmol/L (5-15) Blood Urea Nitrogen 71 mg/dL (7-18) H Creatinine 1.4 MG/DL (0.55-1.30) H Estimat Glomerular Filtration Rate mL/min (>60) Glucose Level 157 MG/DL (74-106) H Calcium Level 8.4 MG/DL (8.5-10.1) L Current Medications Medications (Trade) Dose Ordered Sig/Zeke Route PRN Reason Start Time Stop Time Status Last Admin Dose Admin Acetaminophen (Tylenol) 650 mg Q4H PRN ORAL Mild Pain (Pain Scale 1-3) 08/28/17 08:00 09/27/17 07:59 08/28/17 10:49 Ceftriaxone Sodium 2 gm/ Dextrose 55 ml @ 110 mls/hr Q24H IVPB 09/01/17 14:00 09/08/17 13:59 09/01/17 13:53 Dextrose (Dextrose 50%) STAT PRN IV Hypoglycemia 08/28/17 08:30 09/27/17 08:29 Dextrose/ Electrolytes 1,000 ml @ 100 mls/hr Q10H IV 08/30/17 20:30 09/29/17 20:29 09/01/17 13:44 Famotidine (Pepcid) 20 mg DAILY GT 08/28/17 09:00 09/27/17 08:59 09/01/17 08:35 Insulin Aspart (NovoLOG) BEFORE MEALS AND HS SUBQ 08/28/17 11:30 09/27/17 11:29 Lactulose (Cephulac) 20 gm BID GT 08/28/17 09:00 09/27/17 08:59 09/01/17 08:34 Memantine (Namenda) 5 mg TWICE A DAY GT 08/28/17 09:00 09/27/17 08:59 09/01/17 08:34 Mirtazapine (Remeron) 7.5 mg BEDTIME GT 08/28/17 21:00 09/27/17 20:59 08/31/17 21:06 Multivitamins Therapeutic (Therapeutic Multivitamin) 1 ea DAILY ORAL 08/28/17 09:00 09/27/17 08:59 09/01/17 08:35 Tramadol HCl (Ultram) 50 mg Q4H PRN GT Moderate Pain (Pain Scale 4-6) 08/28/17 08:00 09/04/17 07:59 08/31/17 22:46 Kristen Araujo M.D. Sep 01, 2017 14:48
[2017-09-01 16:00] VITALS: BP 121/57
--- NOTE | 2017-09-01 16:21 | Diagnostic Imaging Report ---
Indication: Abdominal pain Technique: Supine view of the abdomen Comparison: none Findings: There is a gastrostomy. The bowel gas pattern is unremarkable. No definite unusual masses or calcifications. Impression: No definite acute process
[2017-09-01] MEDS ORDERED: NS 275ml ONE (16:44)
[2017-09-01] MEDS ORDERED: Tubing IV Secondary IV ONE (16:44)
[2017-09-01] MEDS ORDERED: D5 1/2NS 1000ml IV ONE (16:44)
--- NOTE | 2017-09-01 16:58 | Nephrology Progress Note ---
Assessment/Plan Assessment 1. Acute renal failure. 2. Malnutrition 3. Urinary tract infection. 4. hypernatremia 5. Hypotension. 6. hypokalemia Plan plan free water per ng change ivf monitoring renal function avoid NSAID replace electrolyte as need Subjective Constitutional: Reports: no symptoms HEENT: Reports: no symptoms Genitourinary: Reports: no symptoms Neurologic/Psychiatric: Reports: no symptoms Subjective no acute events over night Objective Objective Last 24 Hour Vital Signs Date Time Temp Pulse Resp B/P (MAP) Pulse Ox O2 Delivery O2 Flow Rate FiO2 09/01/17 16:00 97.0 63 18 121/57 97 Room Air 97.0 09/01/17 12:00 101 09/01/17 12:00 97.8 111 18 111/58 95 Room Air 97.8 09/01/17 08:00 97.5 109 18 102/62 96 Room Air 97.5 09/01/17 08:00 108 09/01/17 04:00 97.0 104 18 138/79 94 Room Air 97.0 09/01/17 04:00 117 09/01/17 00:00 97.0 125 23 113/66 97 Room Air 97.0 09/01/17 00:00 128 08/31/17 23:45 97.0 08/31/17 22:46 97.0 08/31/17 20:00 97.0 66 23 152/110 97 Room Air 97.0 08/31/17 20:00 119 Intake and Output 08/31/17 09/01/17 19:00 07:00 Intake Total 190 ml Output Total 1000 ml 800 ml Balance -1000 ml -610 ml Intake Free Water 150 ml Tube Feeding 40 ml Output Urine Total 1000 ml 800 ml # Bowel Movements 2 3 Laboratory Tests 09/01/17 06:25: White Blood Count 24.1*H, Red Blood Count 3.59L, Hemoglobin 11.2L, Hematocrit 33.2L, Mean Corpuscular Volume 92, Mean Corpuscular Hemoglobin 31.3H, Mean Corpuscular Hemoglobin Concent 33.9, Red Cell Distribution Width 15.5H, Platelet Count 536H, Mean Platelet Volume 5.2L, Neutrophils (%) (Auto) , Lymphocytes (%) (Auto) , Monocytes (%) (Auto) , Eosinophils (%) (Auto) , Basophils (%) (Auto) , Differential Total Cells Counted 100, Neutrophils % ( Manual) 83H, Lymphocytes % (Manual) 11L, Monocytes % (Manual) 6, Eosinophils % ( Manual) 0, Basophils % (Manual) 0, Band Neutrophils 0, Platelet Estimate IncreasedH, Platelet Morphology Normal, Anisocytosis 1+, Sodium Level 153H, Potassium Level 4.2, Chloride Level 121H, Carbon Dioxide Level 23, Anion Gap 9, Blood Urea Nitrogen 71H, Creatinine 1.4H, Estimat Glomerular Filtration Rate , Glucose Level 157H, Calcium Level 8.4L Height (Feet): 5 Height (Inches): 7.00 Weight (Pounds): 77 Objective GENERAL: The patient is a chronically ill, malnourished female, in no acute distress. HEAD AND NECK: Bitemporal wasting. Extraocular movement intact. Pupils are reactive to light and accommodation. Sclera is pink. Dry mucous membranes. LUNGS: Clear to auscultation. CARDIAC: Regular rate and rhythm. S1 and S2. No murmur. No rub. ABDOMEN: Soft, nontender. G-tube is in place. EXTREMITIES: No edema, no clubbing, no cyanosis. SIMONE JACOBO Sep 01, 2017 16:58
--- NOTE | 2017-09-01 18:52 | Internal Med Progress Note ---
Subjective Physician Name Karl Villegas Attending Physician Karl Villegas MD Allergies: Coded Allergies: PENICILLINS (Verified Allergy, Unknown, 08/28/17) Subjective responsive, NAD Objective Last Vital Signs Date Time Temp Pulse Resp B/P (MAP) Pulse Ox O2 Delivery O2 Flow Rate FiO2 09/01/17 16:00 90 09/01/17 16:00 97.0 18 121/57 97 Room Air 97.0 08/29/17 13:08 8.0 Laboratory Tests Test 09/01/17 06:25 White Blood Count 24.1 K/UL (4.8-10.8) *H Red Blood Count 3.59 M/UL (4.20-5.40) L Hemoglobin 11.2 G/DL (12.0-16.0) L Hematocrit 33.2 % (37.0-47.0) L Mean Corpuscular Volume 92 FL (80-99) Mean Corpuscular Hemoglobin 31.3 PG (27.0-31.0) H Mean Corpuscular Hemoglobin Concent 33.9 G/DL (32.0-36.0) Red Cell Distribution Width 15.5 % (11.6-14.8) H Platelet Count 536 K/UL (150-450) H Mean Platelet Volume 5.2 FL (6.5-10.1) L Neutrophils (%) (Auto) % (45.0-75.0) Lymphocytes (%) (Auto) % (20.0-45.0) Monocytes (%) (Auto) % (1.0-10.0) Eosinophils (%) (Auto) % (0.0-3.0) Basophils (%) (Auto) % (0.0-2.0) Differential Total Cells Counted 100 Neutrophils % (Manual) 83 % (45-75) H Lymphocytes % (Manual) 11 % (20-45) L Monocytes % (Manual) 6 % (1-10) Eosinophils % (Manual) 0 % (0-3) Basophils % (Manual) 0 % (0-2) Band Neutrophils 0 % (0-8) Platelet Estimate Increased H Platelet Morphology Normal Anisocytosis 1+ Sodium Level 153 MMOL/L (136-145) H Potassium Level 4.2 MMOL/L (3.5-5.1) Chloride Level 121 MMOL/L (98-107) H Carbon Dioxide Level 23 MMOL/L (21-32) Anion Gap 9 mmol/L (5-15) Blood Urea Nitrogen 71 mg/dL (7-18) H Creatinine 1.4 MG/DL (0.55-1.30) H Estimat Glomerular Filtration Rate mL/min (>60) Glucose Level 157 MG/DL (74-106) H Calcium Level 8.4 MG/DL (8.5-10.1) L Intake and Output 08/31/17 09/01/17 19:00 07:00 Intake Total 190 ml Output Total 1000 ml 800 ml Balance -1000 ml -610 ml Intake Free Water 150 ml Tube Feeding 40 ml Output Urine Total 1000 ml 800 ml # Bowel Movements 2 3 Objective General: No acute distress, HEENT: NCAT, sclera anicteric, PERRL, Neck: Supple, no significant jugular venous distention, Lungs: Decrease air at bases, Coarse breath sound. Heart: Regular rate and rhythm, normal S1/S2, no murmur Abdomen: soft, nontender, nondistended. Normoactive bowel sounds, + PEG. Extremities: No Cyanosis , clubbing or edema. Assessment/Plan Assessment/Plan (1) Alzheimer's dementia Assessment & Plan: Continue namenda (2) GERD (gastroesophageal reflux disease) Assessment & Plan: Continue pepcid (3) Dysphagia (4) HTN (hypertension) Assessment & Plan: Continue hydralazine (5) Major depression (6) Renal failure (7) Rectal bleed Assessment & Plan: Await endoscopy and colonoscopy today-see GI note (8) UTI (urinary tract infection) Assessment & Plan: E. Coli-see ID consult. Continue cefepime. (9) Sepsis Assessment & Plan: E. Coli. Cont cefepime and Flagyl per ID (10) Anemia Status: not improved Plan: Transfer to [facility] under Karl Hernandez MD Sep 01, 2017 18:52
--- NOTE | 2017-09-01 19:22 | Cardiology Report ---
APPROVED REPORT EKG Measurement Heart [id number] Sinus tachycardia Otherwise normal ECG
--- NOTE | 2017-09-01 19:43 | General Progress Note ---
Assessment/Plan Assessment/Plan Assessment - GI Bleed - cecal ulcer - Cachexia - OBS - Dysphagia - Hypernatremia - Azotemia Recommendations - f/u path - d/c planning - Follow Na and Cr - IV hydration - serial CBC - Transfuse PRN Subjective Allergies: Coded Allergies: PENICILLINS (Verified Allergy, Unknown, 08/28/17) Subjective Calm tolerating TF pathology still pending Objective Last 24 Hour Vital Signs Date Time Temp Pulse Resp B/P (MAP) Pulse Ox O2 Delivery O2 Flow Rate FiO2 09/01/17 16:00 90 09/01/17 16:00 97.0 63 18 121/57 97 Room Air 97.0 09/01/17 12:00 101 09/01/17 12:00 97.8 111 18 111/58 95 Room Air 97.8 09/01/17 08:00 97.5 109 18 102/62 96 Room Air 97.5 09/01/17 08:00 108 09/01/17 04:00 97.0 104 18 138/79 94 Room Air 97.0 09/01/17 04:00 117 09/01/17 00:00 97.0 125 23 113/66 97 Room Air 97.0 09/01/17 00:00 128 08/31/17 23:45 97.0 08/31/17 22:46 97.0 08/31/17 20:00 97.0 66 23 152/110 97 Room Air 97.0 08/31/17 20:00 119 Intake and Output 08/31/17 09/01/17 19:00 07:00 Intake Total 190 ml Output Total 1000 ml 800 ml Balance -1000 ml -610 ml Intake Free Water 150 ml Tube Feeding 40 ml Output Urine Total 1000 ml 800 ml # Bowel Movements 2 3 Laboratory Tests 09/01/17 06:25: White Blood Count 24.1*H, Red Blood Count 3.59L, Hemoglobin 11.2L, Hematocrit 33.2L, Mean Corpuscular Volume 92, Mean Corpuscular Hemoglobin 31.3H, Mean Corpuscular Hemoglobin Concent 33.9, Red Cell Distribution Width 15.5H, Platelet Count 536H, Mean Platelet Volume 5.2L, Neutrophils (%) (Auto) , Lymphocytes (%) (Auto) , Monocytes (%) (Auto) , Eosinophils (%) (Auto) , Basophils (%) (Auto) , Differential Total Cells Counted 100, Neutrophils % ( Manual) 83H, Lymphocytes % (Manual) 11L, Monocytes % (Manual) 6, Eosinophils % ( Manual) 0, Basophils % (Manual) 0, Band Neutrophils 0, Platelet Estimate IncreasedH, Platelet Morphology Normal, Anisocytosis 1+, Sodium Level 153H, Potassium Level 4.2, Chloride Level 121H, Carbon Dioxide Level 23, Anion Gap 9, Blood Urea Nitrogen 71H, Creatinine 1.4H, Estimat Glomerular Filtration Rate , Glucose Level 157H, Calcium Level 8.4L Height (Feet): 5 Height (Inches): 7.00 Weight (Pounds): 77 Objective Cachexic AA woman NCAT Supple CTA RRR Abd Soft ND NT, (+) GT ext no edema Neuro OBS VERO MATHIS Sep 01, 2017 19:43
--- NOTE | 2017-09-02 08:53 | Diagnostic Imaging Report ---
APPROVED REPORT CPT Code: 36465 Present Symptoms Comments: Pain BILATERAL: Imaging reveals a patent deep venous system bilaterally. There is no evidence of thrombus within the femoral, popliteal or tibial segments. The greater saphenous veins are also within normal limits. Doppler indicates normal spontaneous flow within these segments.
--- NOTE | 2017-09-02 09:59 | Discharge Summary ---
Discharge Summary Hospital Course Date of Admission Aug 28, 2017 at 04:21 Date of Discharge Sep 01, 2017 at 16:45 Admitting Diagnosis Rectal bleed, UTI,Sepsis HPI Jorden Marley is a 86 year old female who was admitted on Aug 28, 2017 at 04:21 for Rectal Bleed/Urinary Tract Infection/Sepsis Hospital Course [id number] Discharge Discharge Disposition Patient was discharged to Acute Care Facility(02) Lori Desai NP Sep 02, 2017 09:59
--- NOTE | 2017-09-03 00:45 | Discharge Summary 2 SIG ---
DATE OF ADMISSION: 08/28/2017 DATE OF DISCHARGE: 09/01/2017 CONSULTANTS: 1. Kadi Mckeon M.D. 2. Kristen Araujo M.D. 3. Lisbeth Mcintyre M.D. 4. Poppy Mercado M.D. BRIEF HOSPITAL COURSE: The patient is an 86-year-old female from [facility], was taken to [facility] for complaints of rectal bleed. The patient unable to contribute much to any history due to Alzheimer's dementia. According to staff at [facility], the patient experienced rectal bleed on 08/27/2017. She then presented to [place] emergency room. She has medical history significant for chronic anemia and chronic renal failure, hypertension, major depression, Alzheimer's dementia, GERD. She had dysphagia and had a recent PEG tube placement. On evaluation at ED, she had stable vital signs. Blood work showed severe leukocytosis, WBC was elevated to 28. Her hemoglobin was 10 and hematocrit was 30, and platelet count was 642. She had low sodium 133 and chloride 94. Creatinine was elevated to 4.5 with BUN 241. She was given IV fluid. EKG done showed sinus rhythm with a rate of 103. Chest x-ray showed no consolidation, no effusion, no pneumothorax, no acute cardiopulmonary disease. Urinalysis showed urine wbc too many to count, 15 to 20 rbc with 2+ leukocyte esterase, and negative nitrite. She was admitted for sepsis and urinary tract infection, acute kidney injury, and rectal bleed. She was followed by GI specialist and was kept on NPO. She was monitored for bleeding. The patient has acute renal failure with ATN due to unstable hemodynamics. ATN is nonoliguric and had good urine output. She had low albumin of 1.5 and had malnutrition. She was started initially on vancomycin and cefepime at ER. She was followed by infectious disease specialist. Vancomycin was discontinued and was given cefepime and Flagyl. Sepsis likely due to urinary tract infection. Blood culture showed growth of E. coli in 1/4 bottles. Urine culture with growth of E. coli. Cefepime and Flagyl were discontinued and was switched to IV ceftriaxone. Sputum culture with MRSA and VRE screen was positive. Chest x-ray showed no acute process. On 08/29/2017, she underwent upper GI endoscopy with biopsy as well as colonoscopy, and biopsy findings showed mild gastritis, colonic diverticulosis, and cecal ulcer. She had somewhat larger ulceration in the cecum. The patient no longer bleeding and was recommended to be managed conservatively. She received 2 units packed RBC blood transfusion. She was eventually transferred to [facility]. FINAL DIAGNOSES: 1. Sepsis secondary to urinary tract infection consistent with bacteremia. 2. Urinary tract infection with Escherichia coli. 3. Acute lower gastrointestinal bleed secondary to colonic ulcer. 4. Acute renal failure with acute tubular necrosis due to unstable hemodynamics. 5. Dysphagia with percutaneous endoscopic gastrostomy. 6. Alzheimer's dementia. 7. Gastroesophageal reflux disease. DISPOSITION: The patient was discharged to [facility]. Karl Villegas M.D. I have been assigned to dictate discharge summary on this account and I was not involved in the patient's management. Lori Desai N.P. DR: WAYNE JOB#: [id number] CC: [id number]
== END 2017-09-01 16:45 | disposition short-term general hospital (02) | DRG 871 ==
LOC: EDBD 02:45 → EMR 02:55 → 2E 04:21 → EDBEDREQ 04:36 → 2E 20:34
PROC: 30233N1 Transfusion of Nonautologous Red Blood Cells into Peripheral Vein, Percutaneous Approach (ICD-10-PCS; principal; 2017-08-28)
PROC: 0DBH8ZX Excision of Cecum, Via Natural or Artificial Opening Endoscopic, Diagnostic (ICD-10-PCS; 2017-08-29)
PROC: 0DB78ZX Excision of Stomach, Pylorus, Via Natural or Artificial Opening Endoscopic, Diagnostic (ICD-10-PCS; 2017-08-29 12:10)
DX: A41.9 Sepsis, unspecified organism (principal); G93.40 Encephalopathy, unspecified; N17.0 Acute kidney failure with tubular necrosis; K57.31 Diverticulosis of large intestine without perforation or abscess with bleeding; J18.9 Pneumonia, unspecified organism; K63.3 Ulcer of intestine; F02.81 Dementia in other diseases classified elsewhere, unspecified severity, with behavioral disturbance; N39.0 Urinary tract infection, site not specified; E46 Unspecified protein-calorie malnutrition; Z68.1 Body mass index [BMI] 19.9 or less, adult; G30.9 Alzheimer's disease, unspecified; R13.10 Dysphagia, unspecified; K21.9 Gastro-esophageal reflux disease without esophagitis; D64.9 Anemia, unspecified; I12.9 Hypertensive chronic kidney disease with stage 1 through stage 4 chronic kidney disease, or unspecified chronic kidney disease; N18.9 Chronic kidney disease, unspecified; K29.70 Gastritis, unspecified, without bleeding; B96.20 Unspecified Escherichia coli [E. coli] as the cause of diseases classified elsewhere; Z93.1 Gastrostomy status; Z88.0 Allergy status to penicillin
CPT/HCPCS: 36415; 71045; 74018; 80048; 80053; 80202; 81001; 82043; 82044; 82570; 82962; 82977; 83605; 83735; 84100; 84300; 84484; 85007; 85025; 85610; 85730; 86850; 86900; 86901; 86920; 87040; 87070; 87081; 87086; 87181; 87205; 89050; 93005; 93970; 94003; 94150; 99291; J1815